=== PATIENT | female | born 1995 | race Caucasian/White ===

== ENCOUNTER 2023-02-20 21:30 | Observation (INO) | payer OTHER ==
--- NOTE | 2023-02-20 21:34 | ERPHSYRPT ---
- History of Present Illness Time Seen by Provider: 02/20/23 21:34 Historian: patient Exam Limitations: no limitations Physician History: This is a 27-year-old female patient of Dr. Vargas who complains of vomiting and diarrhea as well as headache and right-sided abdominal pain. Patient's symptoms began yesterday evening at approximately 9 PM. She woke up today and her symptoms were worse. Initially, the epigastric pain was an ache in the epigastric area. However this morning and throughout the day the pain has been more in the right side of her abdomen and it is worse than initial level. She is also had episodes of vomiting and diarrhea today and has a headache. No other individuals in the family have similar symptoms. She has no known exposure to individuals with flulike symptoms or diagnoses of viral illnesses. Patient denies chest pain. She denies cough. She has no shortness of breath. Timing/Duration: yesterday Quality: aching (Initial), sharpness (Worsening) Abdominal Pain Onset Location: RUQ, RLQ, epigastric Pain Radiation: no radiation Severity of Pain-Max: mild (To moderate) Severity of Pain-Current: moderate Modifying Factors: Improves With: other (Severe nausea) Associated Symptoms: diarrhea, loss of appetite, nausea Previous symptoms: no prior history, no recent treatment Allergies/Adverse Reactions: No Known Drug Allergies Allergy (Verified 02/20/23 21:34) Home Medications: Fluoxetine HCl 40 mg PO DAILY PRN 02/20/23 [History] Travel Risk - International Travel Have you traveled outside of the country in past 3 weeks: No - Coronavirus Screening Are you exhibiting any of the following symptoms?: Yes Symptoms: Vomiting/Diarrhea, Headaches/Body Aches/Fatigue Close contact with a COVID-19 positive Pt in past 14-21 Days: No - Vaccine Status Have you recieved a Covid-19 vaccination: No - Review of Systems Constitutional: No Symptoms Eyes: No Symptoms Ears, Nose, & Throat: No Symptoms Respiratory: No Symptoms Cardiac: No Symptoms Abdominal/Gastrointestinal: Abdominal Pain, Nausea, Diarrhea, Appetite Changes Genitourinary Symptoms: No Symptoms Musculoskeletal: No Symptoms Skin: No Symptoms Neurological: Headache Psychological: No Symptoms Endocrine: No Symptoms Hematologic/Lymphatic: No Symptoms Immunological/Allergic: No Symptoms All Other Systems: Reviewed and Negative - Past Medical History Pertinent Past Medical History: No Neurological History: No Pertinent History ENT History: No Pertinent History Cardiac History: No Pertinent History Respiratory History: No Pertinent History Endocrine Medical History: No Pertinent History Musculoskeletal History: No Pertinent History GI Medical History: No Pertinent History History: No Pertinent History Psycho-Social History: No Pertinent History, Other Female Reproductive Disorders: No Pertinent History, Other Other Medical History: abnormal pap smear - Past Surgical History Past Surgical History: No Neuro Surgical History: No Pertinent History Cardiac: No Pertinent History Respiratory: No Pertinent History Gastrointestinal: No Pertinent History Genitourinary: No Pertinent History Musculoskeletal: No Pertinent History Female Surgical History: No Pertinent History Other Surgical History: DENIES SURGERIES - Social History Smoking Status: Never smoker Exposure to second hand smoke: No Drug Use: none Patient Lives Alone: Yes - Nursing Vital Signs Nursing Vital Signs: Initial Vital Signs Temperature 98.1 F 02/20/23 21:36 Pulse Rate 83 02/20/23 21:36 Respiratory Rate 18 02/20/23 21:36 Blood Pressure 126/82 02/20/23 21:36 O2 Sat by Pulse Oximetry 98 02/20/23 21:36 Pain Scale Pain Intensity 3 - Physical Exam General Appearance: no apparent distress, alert, anxiety Eye Exam: PERRL/EOMI, eyes nml inspection Ears, Nose, Throat Exam: normal ENT inspection, moist mucous membranes Neck Exam: normal inspection, non-tender, supple, full range of motion Respiratory Exam: normal breath sounds, lungs clear, airway intact, No chest tenderness, No respiratory distress Cardiovascular Exam: regular rate/rhythm, normal heart sounds, normal peripheral pulses Gastrointestinal/Abdomen Exam: soft, normal bowel sounds, tenderness (Epigastric, right upper quadrant right lower quadrant to palpation), guarding, No rebound Pelvic Exam: not done Rectal Exam: not done Back Exam: normal inspection, normal range of motion, No CVA tenderness, No vertebral tenderness Extremity Exam: normal inspection, normal range of motion, pelvis stable Neurologic Exam: alert, oriented x 3, cooperative, medical doctor md II-XII nml as tested, normal mood/affect, nml cerebellar function, nml station & gait, sensation nml Skin Exam: normal color, warm, dry Lymphatic Exam: No adenopathy SpO2 Interpretation: normal O2 Delivery: Room Air - Course Nursing assessment & vital signs reviewed: Yes Ordered Tests: Active Orders 24 hr Category Date Time Status IV Insertion STAT Care 02/20/23 21:52 Active ABDOMEN AND PELVIS W/0 CONTRAS [CT] Stat Exams 02/20/23 21:52 Taken AMYLASE Stat Lab 02/20/23 21:50 Completed CBC W DIFF Stat Lab 02/20/23 21:50 Completed CMP Stat Lab 02/20/23 21:50 Completed HCG QUALITATIVE,SERUM Stat Lab 02/20/23 21:50 Completed LIPASE Stat Lab 02/20/23 21:50 Completed [place] Screen Stat Lab 02/20/23 21:30 Completed UA W/RFX UR CULTURE Stat Lab 02/20/23 22:46 Received Transfer Order Routine Transfer 02/20/23 Ordered Medication Summary Generic Name Dose Route Start Last Admin Trade Name Freq PRN Reason Stop Dose Admin Piperacillin Sod/Tazobactam 100 mls @ 200 mls/hr 02/20/23 22:59 02/20/23 23:04 Sod 3.375 gm/ Sodium Chloride IV 02/20/23 23:28 200 mls/hr STAT ONE Administration Discontinued Medications Generic Name Dose Route Start Last Admin Trade Name Freq PRN Reason Stop Dose Admin Hydromorphone HCl 1 mg 02/20/23 22:44 02/20/23 22:47 Hydromorphone 1 Mg/1ml Inj 1 Mg/Ml Syringe IV 02/20/23 22:45 1 mg STAT ONE Administration Hydromorphone HCl Confirm 02/20/23 22:47 Hydromorphone 1 Mg/1ml Inj 1 Mg/Ml Syringe Administered 02/20/23 22:48 Dose 1 mg .ROUTE .STK-MED ONE Sodium Chloride 1,000 mls @ 999 mls/hr 02/20/23 21:52 02/20/23 23:09 Sodium Chloride 0.9% 1000 Ml IV 02/20/23 22:52 Infused .Q1H1M STA Infusion Sodium Chloride Confirm 02/20/23 21:54 Sodium Chloride 0.9% 1000 Ml Administered 02/20/23 21:55 Dose 1,000 mls @ ud .ROUTE .STK-MED ONE Sodium Chloride Confirm 02/20/23 23:03 Sodium Chloride 100ml Mini-Bag Plus Administered 02/20/23 23:04 Dose 100 mls @ ud IV .STK-MED ONE Ondansetron HCl 4 mg 02/20/23 21:52 02/20/23 21:57 Ondansetron Hcl 4 Mg/2 Ml Vial IV 02/20/23 21:53 4 mg STAT ONE Administration Ondansetron HCl Confirm 02/20/23 21:54 Ondansetron Hcl 4 Mg/2 Ml Vial Administered 02/20/23 21:55 Dose 4 mg .ROUTE .STK-MED ONE Piperacillin Sod/Tazobactam Sod Confirm 02/20/23 23:02 Piperacillin/Tazobactam Sodium 3.375 Gm Vial Administered 02/20/23 23:03 Dose 3.375 gm IV .STK-MED ONE Lab/Rad Data: Laboratory Result Diagrams 02/20/23 21:50 02/20/23 21:50 Laboratory Results 02/20/23 02/20/23 02/20/23 Range/Units 22:46 22:46 22:20 WBC (4.0-10.5) x10^3/uL RBC (4.1-5.4) x10^6/uL Hgb (12.0-16.0) g/dL Hct (35-47) % MCV (78-100) fL MCH (26-32) pg MCHC (32-36) g/dL RDW (11.5-14.0) % Plt Count (150-450) x10^3/uL MPV (7.5-11.0) fL Gran % (36.0-66.0) % Immature Gran % (Auto) (0.00-0.4) % Nucleat RBC Rel Count (0.00-0.1) % Eos # (Auto) (0-0.5) x10^3/uL Immature Gran # (Auto) (0.00-0.03) x10^3u/L Absolute Lymphs (auto) (1.0-4.6) x10^3/uL Absolute Monos (auto) (0.0-1.3) x10^3/uL Absolute Nucleated RBC (0.00-0.01) x10^3u/L Lymphocytes % (24.0-44.0) % Monocytes % (0.0-12.0) % Eosinophils % (0.00-5.0) % Basophils % (0.0-0.4) % Absolute Granulocytes (1.4-6.9) x10^3/uL Basophils # (0-0.4) x10^3/uL Sodium (137-145) mmol/L Potassium (3.5-5.1) mmol/L Chloride (98-107) mmol/L Carbon Dioxide (22-30) mmol/L Anion Gap (5-15) MEQ/L BUN (7-17) mg/dL Creatinine (0.52-1.04) mg/dL Estimated GFR ML/MIN Glucose (74-106) mg/dL Calcium (8.4-10.2) mg/dL Total Bilirubin (0.2-1.3) mg/dL AST (14-36) U/L ALT (0-35) U/L Alkaline Phosphatase (38-126) U/L Serum Total Protein (6.3-8.2) g/dL Albumin (3.5-5.0) g/dL Amylase (30-110) U/L Lipase (23-300) U/L Serum , Qual (Negative) Urine Color Yellow (Yellow) Urine Appearance Clear (Clear) Urine pH 6.5 (4.6-8.0) Ur Specific [place] 1.025 (1.005-1.030) Urine Protein Trace A (Negative) Urine Glucose (UA) Negative (Negative) mg/dL Urine Ketones 15 A (Negative) Urine Blood Moderate A (Negative) Urine Nitrite Negative (Negative) Urine Bilirubin Negative (Negative) Urine Urobilinogen 1.0 A (0.2) mg/dL Ur Leukocyte Esterase Negative (Negative) U Hyaline Cast (Auto) NONE SEEN (0-2) /LPF Urine Microscopic RBC 0-2 (0-5) /HPF Urine Microscopic WBC 3-5 (0-5) /HPF Ur Epithelial Cells Few (None Seen) /HPF Urine Bacteria Few A (None Seen) /HPF Urine Culture Reflexed NO (NO) Monoscreen (Negative) Influenza Type A Ag NEGATIVE (NEGATIVE) Influenza Type B Ag NEGATIVE (NEGATIVE) RSV (PCR) NEGATIVE (NEGATIVE) SARS-CoV-2 (PCR) NEGATIVE (NEGATIVE) Group A Strep Antibody NOT DETECTED (NEGATIVE) 02/20/23 02/20/23 02/20/23 Range/Units 21:50 21:50 21:50 WBC 9.8 (4.0-10.5) x10^3/uL RBC 4.37 (4.1-5.4) x10^6/uL Hgb 12.3 (12.0-16.0) g/dL Hct 38.7 (35-47) % MCV 88.6 (78-100) fL MCH 28.1 (26-32) pg MCHC 31.8 L (32-36) g/dL RDW 12.0 (11.5-14.0) % Plt Count 306 (150-450) x10^3/uL MPV 10.0 (7.5-11.0) fL Gran % 56.5 (36.0-66.0) % Immature Gran % (Auto) 0.3 (0.00-0.4) % Nucleat RBC Rel Count 0.0 (0.00-0.1) % Eos # (Auto) 0.15 (0-0.5) x10^3/uL Immature Gran # (Auto) 0.03 (0.00-0.03) x10^3u/L Absolute Lymphs (auto) 3.18 (1.0-4.6) x10^3/uL Absolute Monos (auto) 0.84 (0.0-1.3) x10^3/uL Absolute Nucleated RBC 0.00 (0.00-0.01) x10^3u/L Lymphocytes % 32.4 (24.0-44.0) % Monocytes % 8.6 (0.0-12.0) % Eosinophils % 1.5 (0.00-5.0) % Basophils % 0.7 (0.0-0.4) % Absolute Granulocytes 5.55 (1.4-6.9) x10^3/uL Basophils # 0.07 (0-0.4) x10^3/uL Sodium 137 (137-145) mmol/L Potassium 3.9 (3.5-5.1) mmol/L Chloride 104 (98-107) mmol/L Carbon Dioxide 23 (22-30) mmol/L Anion Gap 13.9 (5-15) MEQ/L BUN 14 (7-17) mg/dL Creatinine 0.59 (0.52-1.04) mg/dL Estimated GFR > 60.0 ML/MIN Glucose 89 (74-106) mg/dL Calcium 8.5 (8.4-10.2) mg/dL Total Bilirubin 1.50 H (0.2-1.3) mg/dL AST 33 (14-36) U/L ALT 13 (0-35) U/L Alkaline Phosphatase 55 (38-126) U/L Serum Total Protein 7.4 (6.3-8.2) g/dL Albumin 4.2 (3.5-5.0) g/dL Amylase 61 (30-110) U/L Lipase 51 (23-300) U/L Serum , Qual NEGATIVE (Negative) Urine Color (Yellow) Urine Appearance (Clear) Urine pH (4.6-8.0) Ur Specific [place] (1.005-1.030) Urine Protein (Negative) Urine Glucose (UA) (Negative) mg/dL Urine Ketones (Negative) Urine Blood (Negative) Urine Nitrite (Negative) Urine Bilirubin (Negative) Urine Urobilinogen (0.2) mg/dL Ur Leukocyte Esterase (Negative) U Hyaline Cast (Auto) (0-2) /LPF Urine Microscopic RBC (0-5) /HPF Urine Microscopic WBC (0-5) /HPF Ur Epithelial Cells (None Seen) /HPF Urine Bacteria (None Seen) /HPF Urine Culture Reflexed (NO) Monoscreen (Negative) Influenza Type A Ag (NEGATIVE) Influenza Type B Ag (NEGATIVE) RSV (PCR) (NEGATIVE) SARS-CoV-2 (PCR) (NEGATIVE) Group A Strep Antibody (NEGATIVE) 02/20/23 Range/Units 21:30 WBC (4.0-10.5) x10^3/uL RBC (4.1-5.4) x10^6/uL Hgb (12.0-16.0) g/dL Hct (35-47) % MCV (78-100) fL MCH (26-32) pg MCHC (32-36) g/dL RDW (11.5-14.0) % Plt Count (150-450) x10^3/uL MPV (7.5-11.0) fL Gran % (36.0-66.0) % Immature Gran % (Auto) (0.00-0.4) % Nucleat RBC Rel Count (0.00-0.1) % Eos # (Auto) (0-0.5) x10^3/uL Immature Gran # (Auto) (0.00-0.03) x10^3u/L Absolute Lymphs (auto) (1.0-4.6) x10^3/uL Absolute Monos (auto) (0.0-1.3) x10^3/uL Absolute Nucleated RBC (0.00-0.01) x10^3u/L Lymphocytes % (24.0-44.0) % Monocytes % (0.0-12.0) % Eosinophils % (0.00-5.0) % Basophils % (0.0-0.4) % Absolute Granulocytes (1.4-6.9) x10^3/uL Basophils # (0-0.4) x10^3/uL Sodium (137-145) mmol/L Potassium (3.5-5.1) mmol/L Chloride (98-107) mmol/L Carbon Dioxide (22-30) mmol/L Anion Gap (5-15) MEQ/L BUN (7-17) mg/dL Creatinine (0.52-1.04) mg/dL Estimated GFR ML/MIN Glucose (74-106) mg/dL Calcium (8.4-10.2) mg/dL Total Bilirubin (0.2-1.3) mg/dL AST (14-36) U/L ALT (0-35) U/L Alkaline Phosphatase (38-126) U/L Serum Total Protein (6.3-8.2) g/dL Albumin (3.5-5.0) g/dL Amylase (30-110) U/L Lipase (23-300) U/L Serum , Qual (Negative) Urine Color (Yellow) Urine Appearance (Clear) Urine pH (4.6-8.0) Ur Specific [place] (1.005-1.030) Urine Protein (Negative) Urine Glucose (UA) (Negative) mg/dL Urine Ketones (Negative) Urine Blood (Negative) Urine Nitrite (Negative) Urine Bilirubin (Negative) Urine Urobilinogen (0.2) mg/dL Ur Leukocyte Esterase (Negative) U Hyaline Cast (Auto) (0-2) /LPF Urine Microscopic RBC (0-5) /HPF Urine Microscopic WBC (0-5) /HPF Ur Epithelial Cells (None Seen) /HPF Urine Bacteria (None Seen) /HPF Urine Culture Reflexed (NO) Monoscreen NEGATIVE (Negative) Influenza Type A Ag (NEGATIVE) Influenza Type B Ag (NEGATIVE) RSV (PCR) (NEGATIVE) SARS-CoV-2 (PCR) (NEGATIVE) Group A Strep Antibody (NEGATIVE) - Progress Progress: improved, pain not gone completely Progress Note: 02/20/23 23:10 CAT scan of the abdomen pelvis shows acute appendicitis. There is a enlarged appendix to 1 cm in diameter without abscess but with periappendiceal fat stranding present. This patient's medical issue is 1 of high complexity. The level of complexity and the work-up performed based on review of the patient's history of present illness, review of medication list, review of medication allergy list, history of present illness and findings on physical examination. The work-up performed includes placement of intravenous line, infusion of normal saline solution, Zofran antiemetic intravenously, Dilaudid pain medicine intravenously, urinalysis, test, CBC, CMP, amylase, lipase, and CAT scan of the abdomen and pelvis. I reviewed the results of this work-up. The patient has acute appendicitis. Is not perforated. I spoke with the radiologist who interpreted this film and he also confirmed what the CT scan report listed as its impression. I spoke with Dr. Callaway who is the general surgeon on-call. I reviewed to the patient history, physical findings, and the results of the CAT scan of the abdomen pelvis without contrast with him. Together, we decided to admit the patient to the hospital. We will give her IV hydration, IV antibiotics, antiemetics, keep her n.p.o. and she will undergo surgical intervention in the morning to remove the appendix. He will be notified if the patient's condition worsens or changes prior to the morning surgery. We also let the nursing staff in-house no that this surgery will be added to the morning schedule. I discussed the above with the patient. She agrees to this plan. Discussed with : Eric Counseled pt/family regarding: lab results, diagnosis, rad results Medical Desision Making - Independent Historian Additional History obtained from: Mother - Discussion of managment Care discussed with:: specialist (General surgeon and also radiologist) Reviewed:: Test results, Need for additional workup Agreed on:: Treatment plan, decision to admit - Diagnostic Testing Diagnostic test were ordered, analyzed, and reviewed by me: Yes Radiological Interpretation: Reviewed by me, Discussed w/ radiologist - Risk of complications The pt has a high risk of morbidity or mortality based on: Need for emergency major surgery, Decision regarding hospitilization or escalation of hosp level of care - Departure Departure Disposition: Home Clinical Impression: Acute appendicitis Condition: Stable Critical Care Time: No Referrals: NAINA VARGAS MD [Primary Care Provider] - Follow up/PCP as directed
[2023-02-20] MEDS ORDERED: Sodium Chloride 0.9% 1000 ML 1,000 ML IV STA (21:52)
[2023-02-20] MEDS ORDERED: Zofran 4 MG/2 ML VIAL IV ONE (21:52)
[2023-02-20] MEDS ORDERED: Sodium Chloride 0.9% 1000 ML 1,000 ML ONE (21:54)
[2023-02-20] MEDS ORDERED: Zofran 4 MG/2 ML VIAL ONE (21:54)
[2023-02-20 22:02] LABS: Absolute Neutrophil Ct (ANC) 5.55 x10^3/uL (1.4-6.9); BASOPHIL % 0.7 % (0.0-0.4); Basophil (Absolute #) 0.07 x10^3/uL (0-0.4); Eosinophil % 1.5 % (0.00-5.0); Eosinophil (Absolute #) 0.15 x10^3/uL (0-0.5); Hematocrit 38.7 % (35-47); Hemoglobin 12.3 g/dL (12.0-16.0); IMMATURE GRAN # 0.03 x10^3u/L (0.00-0.03); IMMATURE GRAN % 0.3 % (0.00-0.4); Lymphocyte (Absolute #) 3.18 x10^3/uL (1.0-4.6); Lymphocytes % 32.4 % (24.0-44.0); Mean Cell Volume 88.6 fL (78-100); Mean Corpuscular Hemoglobin 28.1 pg (26-32); Mean Corpuscular Hgb Concent. 31.8 g/dL (32-36); Monocyte (Absolute #) 0.84 x10^3/uL (0.0-1.3); Monocytes % 8.6 % (0.0-12.0); Neutrophil % 56.5 % (36.0-66.0); Platelet Count 306 x10^3/uL (150-450); Red Blood Count 4.37 x10^6/uL (4.1-5.4); White Blood Count 9.8 x10^3/uL (4.0-10.5)
[2023-02-20 22:15] LABS: ALBUMIN 4.2 g/dL (3.5-5.0); ALKALINE PHOSPHATASE 55 U/L (38-126); AMYLASE 61 U/L (30-110); ANION GAP 13.9 MEQ/L (5-15); BLOOD UREA NITROGEN 14 mg/dL (7-17); CHLORIDE 104 mmol/L (98-107); Calcium 8.5 mg/dL (8.4-10.2); Carbon Dioxide 23 mmol/L (22-30); Creatinine 1 0.59 mg/dL (0.52-1.04); EST GLOMERULAR FILTRATION RATE > 60.0 ML/MIN; Glucose 89 mg/dL (74-106); LIPASE 51 U/L (23-300); Potassium 3.9 mmol/L (3.5-5.1); SGOT/AST 33 U/L (14-36); SGPT/ALT 13 U/L (0-35); SODIUM 137 mmol/L (137-145); Total Protein 7.4 g/dL (6.3-8.2)
[2023-02-20] MEDS ORDERED: Hydromorphone 1 mg/ml Injection IV ONE (22:44)
[2023-02-20] MEDS ORDERED: Hydromorphone 1 mg/ml Injection ONE (22:47)
[2023-02-20] MEDS ORDERED: PIPERACILLIN/TAZOBACTAM 3.375 GM in Sodium Chloride 100ML MINI-BAG PLUS 100 ML IV ONE (22:59)
[2023-02-20 23:02] LABS: INFLUENZA A NEGATIVE (NEGATIVE); INFLUENZA B NEGATIVE (NEGATIVE); RESPIRATORY SYNCTIAL VIRUS NEGATIVE (NEGATIVE); SARS-CoV-2 Xpert Express NEGATIVE (NEGATIVE)
[2023-02-20] MEDS ORDERED: PIPERACILLIN/TAZOBACTAM IV ONE (23:02)
[2023-02-20] MEDS ORDERED: Sodium Chloride 100ML MINI-BAG PLUS 100 ML IV ONE (23:03)
[2023-02-20 23:05] LABS: Appearance Clear (Clear); Bilirubin Negative (Negative); Blood Moderate (Negative); Epithelial Cells Few /HPF (None Seen); Glucose, Urine Negative (Negative); Hyaline Casts NONE SEEN /LPF (0-2); Ketones 15 (Negative); Leukocyte Esterase Negative (Negative); Nitrite Negative (Negative); Ph 6.5 (4.6-8.0); Protein,Urine Dip Trace (Negative); RBC 0-2 /HPF (0-5); Specific Gravity 1.025 (1.005-1.030)
[2023-02-20 23:15] LABS: ADD URINE CULTURE? NO (NO); Bacteria Few /HPF (None Seen)
[2023-02-21] MEDS ORDERED: Sodium Chloride 0.9% 1000 ML 1,000 ML IV SCH (00:06)
[2023-02-21] MEDS ORDERED: FEVERALL 650 MG PR PRN (00:06)
[2023-02-21] MEDS: PIPERACILLIN/TAZOBACTAM 3.375 GM in Sodium Chloride 100ML MINI-BAG PLUS 100 ML IV SCH ×3 (00:09→13:33)
[2023-02-21] MEDS: Hydromorphone 1 mg/ml Injection IV PRN ×4 (00:31→13:33)
[2023-02-21 04:28] LABS: Absolute Neutrophil Ct (ANC) 3.64 x10^3/uL (1.4-6.9); BASOPHIL % 0.7 % (0.0-0.4); Basophil (Absolute #) 0.05 x10^3/uL (0-0.4); Eosinophil % 1.9 % (0.00-5.0); Eosinophil (Absolute #) 0.13 x10^3/uL (0-0.5); Hematocrit 34.9 % (35-47); Hemoglobin 11.2 g/dL (12.0-16.0); IMMATURE GRAN # 0.01 x10^3u/L (0.00-0.03); IMMATURE GRAN % 0.1 % (0.00-0.4); Lymphocyte (Absolute #) 2.39 x10^3/uL (1.0-4.6); Lymphocytes % 35.3 % (24.0-44.0); Mean Cell Volume 90.4 fL (78-100); Mean Corpuscular Hgb Concent. 32.1 g/dL (32-36); Mean Platelet Volume 9.9 fL (7.5-11.0); Monocyte (Absolute #) 0.56 x10^3/uL (0.0-1.3); Monocytes % 8.3 % (0.0-12.0); Neutrophil % 53.7 % (36.0-66.0); Platelet Count 220 x10^3/uL (150-450); Red Blood Count 3.86 x10^6/uL (4.1-5.4); Red Cell Distribution Width 12.1 % (11.5-14.0); White Blood Count 6.8 x10^3/uL (4.0-10.5)
[2023-02-21 04:43] LABS: ALBUMIN 3.2 g/dL (3.5-5.0); ALKALINE PHOSPHATASE 46 U/L (38-126); ANION GAP 10.3 MEQ/L (5-15); BLOOD UREA NITROGEN 12 mg/dL (7-17); CHLORIDE 108 mmol/L (98-107); Calcium 7.6 mg/dL (8.4-10.2); Carbon Dioxide 23 mmol/L (22-30); Creatinine 1 0.62 mg/dL (0.52-1.04); EST GLOMERULAR FILTRATION RATE > 60.0 ML/MIN; Glucose 86 mg/dL (74-106); Potassium 3.4 mmol/L (3.5-5.1); SGOT/AST 18 U/L (14-36); SGPT/ALT 11 U/L (0-35); SODIUM 138 mmol/L (137-145); Total Protein 5.9 g/dL (6.3-8.2)
[2023-02-21] MEDS ORDERED: PIPERACILLIN/TAZOBACTAM IV ONE (05:37)
[2023-02-21] MEDS ORDERED: Sodium Chloride 100ML MINI-BAG PLUS 100 ML IV ONE (05:38)
--- NOTE | 2023-02-21 08:40 | XRAY ---
Indication: Right abdomen pain. Multiple contiguous axial images obtained through the abdomen and pelvis without contrast. Comparison: None Lung bases clear. Heart is not enlarged. Noncontrasted stomach and bowel loops appear nonobstructed. Prominent appendix up to 10 mm with mild periappendiceal stranding favoring acute appendicitis. No free fluid/air. Remaining liver, gallbladder, pancreas, spleen, general glands, kidneys, ureters, bladder, uterus, and aorta are unremarkable for noncontrast exam. Osseous structures intact. Impression: CT findings favoring acute appendicitis. No complications. Comment: Preliminary interpretation made by [facility]. No critical discrepancy.
[2023-02-21] MEDS ORDERED: MEFOXIN 2 GM PREMIX** 2 GM/50 ML ML IV ONE (08:59)
[2023-02-21] MEDS ORDERED: POTASSIUM CHLORIDE 20 mEq IN WATER 100ML 20 MEQ/100 ML BAG IV ONE (09:20)
[2023-02-21] MEDS ORDERED: Sodium Chloride 0.9% W/ 20 mEq KCl/LITER 1,000 ML IV SCH (09:30)
[2023-02-21] MEDS ORDERED: Lactated Ringers 1,000 ML IV SCH (09:30)
[2023-02-21] MEDS ORDERED: MEFOXIN 2 GM PREMIX** 2 GM/50 ML ML IV SCH (10:00)
[2023-02-21] MEDS ORDERED: Phenergan 25 MG INJ*** 12.5 MG in Sodium Chloride 0.9% 100 ML IV PRN (10:01)
--- NOTE | 2023-02-21 10:04 | PCM.HP ---
History of Present Illness - Chief Complaint Chief Complaint: appy History of Present Illness: is a 27 year old female pt with no significant medical history who was admitted through ER with appendicitis. She had 1d of abd pain which started in the epigastrum, then localized to RLQ/R mid abd and worsened. She had associated V and D; no fever. Has not eaten in the past 2 d and drinking much less than usual. Since coming to the hospital, she has had a headache which is 7/10 currently. Abd pain is 3/10. She did have a hx of migraine x 1 in the past and this BRYANT is almost as bad. C/o photophobia. - Review of Systems Abdominal/Gastrointestinal: Abdominal Pain, Vomiting, Diarrhea, Appetite Changes Neurological: Headache All Other Systems: Reviewed and Negative Medications & Allergies Home Medications: Home Medication List Fluoxetine HCl 40 mg PO DAILY PRN 02/20/23 [History Confirmed 02/20/23] Allergies/Adverse Reactions: Allergies Allergy/AdvReac Type Severity Reaction Status Date / Time No Known Drug Allergies Allergy Verified 02/20/23 21:34 - Past Medical History Past Medical History: No Neurological History: No Pertinent History ENT History: No Pertinent History Cardiac History: No Pertinent History Respiratory History: No Pertinent History Endocrine Medical History: No Pertinent History Musculoskelatal History: No Pertinent History GI Medical History: No Pertinent History History: No Pertinent History Pyscho-Social History: No Pertinent History, Other Reproductive Disorders: No Pertinent History, Other Comment: abnormal pap smear - Female History Are you now?: No - Past Surgical History Past Surgical History: No Neuro Surgical History: No Pertinent History Cardiac History: No Pertinent History Respiratory Surgery: No Pertinent History GI Surgical History: No Pertinent History Genitourinary Surgical Hx: No Pertinent History Musculskeletal Surgical Hx: No Pertinent History Female Surgical History: No Pertinent History Other Surgical History: DENIES SURGERIES - Social History Smoking Status: Never smoker Exposure to second hand smoke: No Alcohol: None Drug Use: none - Physical Exam Vital Signs: Vital Signs - 24 hr Temp Pulse Resp BP Pulse Ox 02/21/23 09:14 97.3 F 72 16 112/68 96 02/21/23 07:27 97.3 F 72 16 112/68 96 02/21/23 05:00 98 F 67 16 102/64 96 02/21/23 04:05 98 F 67 16 102/64 96 03/30/23 01:52 97.8 F 68 17 112/61 02/20/23 23:00 68 94/75 98 02/20/23 22:30 79 103/73 96 02/20/23 21:36 98.1 F 83 18 126/82 98 General Appearance: no apparent distress, alert, other (just out of the shower) Neurologic Exam: oriented x 3, 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, 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 Eye Exam: eyes nml inspection Ears, Nose, Throat Exam: pharynx normal, moist mucous membranes Neck Exam: normal inspection, non-tender, No lymphadenopathy, No subcutaneous emphysema, No thyromegaly Respiratory Exam: normal breath sounds, lungs clear, No crackles/rales, No rhonchi, No wheezing Cardiovascular Exam: regular rate/rhythm, normal heart sounds, No murmur Gastrointestinal/Abdomen Exam: soft, tenderness (RLQ, R mid abd), No normal bowel sounds (hypoactive but present), No distention, No mass, No guarding, No rebound Back Exam: normal inspection, No CVA tenderness Extremity Exam: normal inspection, No pedal edema, No swelling Skin Exam: normal color, warm, dry, No rash Results - Labs Lab/Micro Results: Lab Results-Last 24 Hours 02/20/23 02/20/23 02/20/23 Range/Units 21:30 21:50 21:50 WBC 9.8 (4.0-10.5) x10^3/uL RBC 4.37 (4.1-5.4) x10^6/uL Hgb 12.3 (12.0-16.0) g/dL Hct 38.7 (35-47) % MCV 88.6 (78-100) fL MCH 28.1 (26-32) pg MCHC 31.8 L (32-36) g/dL RDW 12.0 (11.5-14.0) % Plt Count 306 (150-450) x10^3/uL MPV 10.0 (7.5-11.0) fL Gran % 56.5 (36.0-66.0) % Immature Gran % (Auto) 0.3 (0.00-0.4) % Nucleat RBC Rel Count 0.0 (0.00-0.1) % Eos # (Auto) 0.15 (0-0.5) x10^3/uL Immature Gran # (Auto) 0.03 (0.00-0.03) x10^3u/L Absolute Lymphs (auto) 3.18 (1.0-4.6) x10^3/uL Absolute Monos (auto) 0.84 (0.0-1.3) x10^3/uL Absolute Nucleated RBC 0.00 (0.00-0.01) x10^3u/L Lymphocytes % 32.4 (24.0-44.0) % Monocytes % 8.6 (0.0-12.0) % Eosinophils % 1.5 (0.00-5.0) % Basophils % 0.7 (0.0-0.4) % Absolute Granulocytes 5.55 (1.4-6.9) x10^3/uL Basophils # 0.07 (0-0.4) x10^3/uL Sodium 137 (137-145) mmol/L Potassium 3.9 (3.5-5.1) mmol/L Chloride 104 (98-107) mmol/L Carbon Dioxide 23 (22-30) mmol/L Anion Gap 13.9 (5-15) MEQ/L BUN 14 (7-17) mg/dL Creatinine 0.59 (0.52-1.04) mg/dL Estimated GFR > 60.0 ML/MIN Glucose 89 (74-106) mg/dL Calcium 8.5 (8.4-10.2) mg/dL Total Bilirubin 1.50 H (0.2-1.3) mg/dL AST 33 (14-36) U/L ALT 13 (0-35) U/L Alkaline Phosphatase 55 (38-126) U/L Serum Total Protein 7.4 (6.3-8.2) g/dL Albumin 4.2 (3.5-5.0) g/dL Amylase 61 (30-110) U/L Lipase 51 (23-300) U/L Serum , Qual (Negative) Urine Color (Yellow) Urine Appearance (Clear) Urine pH (4.6-8.0) Ur Specific [place] (1.005-1.030) Urine Protein (Negative) Urine Glucose (UA) (Negative) mg/dL Urine Ketones (Negative) Urine Blood (Negative) Urine Nitrite (Negative) Urine Bilirubin (Negative) Urine Urobilinogen (0.2) mg/dL Ur Leukocyte Esterase (Negative) U Hyaline Cast (Auto) (0-2) /LPF Urine Microscopic RBC (0-5) /HPF Urine Microscopic WBC (0-5) /HPF Ur Epithelial Cells (None Seen) /HPF Urine Bacteria (None Seen) /HPF Urine Culture Reflexed (NO) Monoscreen NEGATIVE (Negative) Influenza Type A Ag (NEGATIVE) Influenza Type B Ag (NEGATIVE) RSV (PCR) (NEGATIVE) SARS-CoV-2 (PCR) (NEGATIVE) Group A Strep Antibody (NEGATIVE) 02/20/23 02/20/23 02/20/23 Range/Units 21:50 22:20 22:46 WBC (4.0-10.5) x10^3/uL RBC (4.1-5.4) x10^6/uL Hgb (12.0-16.0) g/dL Hct (35-47) % MCV (78-100) fL MCH (26-32) pg MCHC (32-36) g/dL RDW (11.5-14.0) % Plt Count (150-450) x10^3/uL MPV (7.5-11.0) fL Gran % (36.0-66.0) % Immature Gran % (Auto) (0.00-0.4) % Nucleat RBC Rel Count (0.00-0.1) % Eos # (Auto) (0-0.5) x10^3/uL Immature Gran # (Auto) (0.00-0.03) x10^3u/L Absolute Lymphs (auto) (1.0-4.6) x10^3/uL Absolute Monos (auto) (0.0-1.3) x10^3/uL Absolute Nucleated RBC (0.00-0.01) x10^3u/L Lymphocytes % (24.0-44.0) % Monocytes % (0.0-12.0) % Eosinophils % (0.00-5.0) % Basophils % (0.0-0.4) % Absolute Granulocytes (1.4-6.9) x10^3/uL Basophils # (0-0.4) x10^3/uL Sodium (137-145) mmol/L Potassium (3.5-5.1) mmol/L Chloride (98-107) mmol/L Carbon Dioxide (22-30) mmol/L Anion Gap (5-15) MEQ/L BUN (7-17) mg/dL Creatinine (0.52-1.04) mg/dL Estimated GFR ML/MIN Glucose (74-106) mg/dL Calcium (8.4-10.2) mg/dL Total Bilirubin (0.2-1.3) mg/dL AST (14-36) U/L ALT (0-35) U/L Alkaline Phosphatase (38-126) U/L Serum Total Protein (6.3-8.2) g/dL Albumin (3.5-5.0) g/dL Amylase (30-110) U/L Lipase (23-300) U/L Serum , Qual NEGATIVE (Negative) Urine Color Yellow (Yellow) Urine Appearance Clear (Clear) Urine pH 6.5 (4.6-8.0) Ur Specific [place] 1.025 (1.005-1.030) Urine Protein Trace A (Negative) Urine Glucose (UA) Negative (Negative) mg/dL Urine Ketones 15 A (Negative) Urine Blood Moderate A (Negative) Urine Nitrite Negative (Negative) Urine Bilirubin Negative (Negative) Urine Urobilinogen 1.0 A (0.2) mg/dL Ur Leukocyte Esterase Negative (Negative) U Hyaline Cast (Auto) NONE SEEN (0-2) /LPF Urine Microscopic RBC 0-2 (0-5) /HPF Urine Microscopic WBC 3-5 (0-5) /HPF Ur Epithelial Cells Few (None Seen) /HPF Urine Bacteria Few A (None Seen) /HPF Urine Culture Reflexed NO (NO) Monoscreen (Negative) Influenza Type A Ag NEGATIVE (NEGATIVE) Influenza Type B Ag NEGATIVE (NEGATIVE) RSV (PCR) NEGATIVE (NEGATIVE) SARS-CoV-2 (PCR) NEGATIVE (NEGATIVE) Group A Strep Antibody (NEGATIVE) 02/20/23 02/21/23 02/21/23 Range/Units 22:46 04:11 04:11 WBC 6.8 (4.0-10.5) x10^3/uL RBC 3.86 L (4.1-5.4) x10^6/uL Hgb 11.2 L (12.0-16.0) g/dL Hct 34.9 L (35-47) % MCV 90.4 (78-100) fL MCH 29.0 (26-32) pg MCHC 32.1 (32-36) g/dL RDW 12.1 (11.5-14.0) % Plt Count 220 (150-450) x10^3/uL MPV 9.9 (7.5-11.0) fL Gran % 53.7 (36.0-66.0) % Immature Gran % (Auto) 0.1 (0.00-0.4) % Nucleat RBC Rel Count 0.0 (0.00-0.1) % Eos # (Auto) 0.13 (0-0.5) x10^3/uL Immature Gran # (Auto) 0.01 (0.00-0.03) x10^3u/L Absolute Lymphs (auto) 2.39 (1.0-4.6) x10^3/uL Absolute Monos (auto) 0.56 (0.0-1.3) x10^3/uL Absolute Nucleated RBC 0.00 (0.00-0.01) x10^3u/L Lymphocytes % 35.3 (24.0-44.0) % Monocytes % 8.3 (0.0-12.0) % Eosinophils % 1.9 (0.00-5.0) % Basophils % 0.7 (0.0-0.4) % Absolute Granulocytes 3.64 (1.4-6.9) x10^3/uL Basophils # 0.05 (0-0.4) x10^3/uL Sodium 138 (137-145) mmol/L Potassium 3.4 L (3.5-5.1) mmol/L Chloride 108 H (98-107) mmol/L Carbon Dioxide 23 (22-30) mmol/L Anion Gap 10.3 (5-15) MEQ/L BUN 12 (7-17) mg/dL Creatinine 0.62 (0.52-1.04) mg/dL Estimated GFR > 60.0 ML/MIN Glucose 86 (74-106) mg/dL Calcium 7.6 L (8.4-10.2) mg/dL Total Bilirubin 1.40 H (0.2-1.3) mg/dL AST 18 (14-36) U/L ALT 11 (0-35) U/L Alkaline Phosphatase 46 (38-126) U/L Serum Total Protein 5.9 L (6.3-8.2) g/dL Albumin 3.2 L (3.5-5.0) g/dL Amylase (30-110) U/L Lipase (23-300) U/L Serum , Qual (Negative) Urine Color (Yellow) Urine Appearance (Clear) Urine pH (4.6-8.0) Ur Specific [place] (1.005-1.030) Urine Protein (Negative) Urine Glucose (UA) (Negative) mg/dL Urine Ketones (Negative) Urine Blood (Negative) Urine Nitrite (Negative) Urine Bilirubin (Negative) Urine Urobilinogen (0.2) mg/dL Ur Leukocyte Esterase (Negative) U Hyaline Cast (Auto) (0-2) /LPF Urine Microscopic RBC (0-5) /HPF Urine Microscopic WBC (0-5) /HPF Ur Epithelial Cells (None Seen) /HPF Urine Bacteria (None Seen) /HPF Urine Culture Reflexed (NO) Monoscreen (Negative) Influenza Type A Ag (NEGATIVE) Influenza Type B Ag (NEGATIVE) RSV (PCR) (NEGATIVE) SARS-CoV-2 (PCR) (NEGATIVE) Group A Strep Antibody NOT DETECTED (NEGATIVE) - Radiology Impressions Radiology Exams & Impressions: Radiology Procedures Category Date Time Status ABDOMEN AND PELVIS W/0 CONTRAS [CT] Stat Exams 02/20/23 21:52 Completed Assessment/Plan (1) Acute appendicitis Current Visit: Yes Status: Acute Qualifiers: Acute appendicitis type: unspecified acute appendicitis type Qualified Code(s): K35.80 - Unspecified acute appendicitis Assessment & Plan: She is having surgery with Dr. Shon Wu within the hour, thank you. Code(s): K35.80 - UNSPECIFIED ACUTE APPENDICITIS (2) Headache Current Visit: Yes Status: Acute Qualifiers: Headache type: other headache syndrome Qualified Code(s): G44.89 - Other headache syndrome Assessment & Plan: Likely migraine, with photophobia, + FHx migraine, and personal history of a migraine in the past. Likely related to dehydration, along with recent weather changes, stress, sleep changes, and current illness. CN exam is nl. With factors common for migraine and nl exam, I don't feel that imaging is necessary at this time. Code(s): R51.9 - HEADACHE, UNSPECIFIED
[2023-02-21] MEDS ORDERED: DIPRIVAN 200 MG/20 ML IV ONE ×2 (10:06→10:16)
[2023-02-21] MEDS ORDERED: Decadron 4 MG INJ ONE ×2 (10:07→10:16)
[2023-02-21] MEDS ORDERED: Xylocaine-Mpf 2% 5 Ml Vial ONE ×2 (10:07→10:16)
[2023-02-21] MEDS ORDERED: Zofran 4 MG/2 ML VIAL ONE ×2 (10:07→10:16)
[2023-02-21] MEDS ORDERED: SUBLIMAZE 100 MCG/2 ML ONE ×3 (10:08→11:52)
[2023-02-21] MEDS ORDERED: Zemuron 100 MG/10 ML ONE ×2 (10:08→10:16)
[2023-02-21] MEDS ORDERED: BRIDION 200MG/2ML IV ONE ×2 (10:16→10:48)
[2023-02-21] MEDS ORDERED: TORAdol 30 mg Injection ONE ×2 (10:16→11:24)
[2023-02-21] MEDS ORDERED: Versed 2 MG/2 ML Injection ONE (10:19)
[2023-02-21] MEDS ORDERED: Magnesium Sulfate 1 GM/2 ML VIAL ONE (10:31)
[2023-02-21] MEDS ORDERED: Ketamine HCl 50 MG/ML ONE (10:34)
[2023-02-21] MEDS ORDERED: Ephedrine Sulfate 50 MG/ML ONE (11:05)
[2023-02-21] MEDS ORDERED: MORPHINE SULFATE 2 MG INJ ONE ×2 (11:44→12:21)
[2023-02-21] MEDS ORDERED: Hydromorphone 1 mg/ml Injection ONE (11:58)
[2023-02-21] MEDS ORDERED: Zofran 4 MG/2 ML VIAL IV PRN (13:49)
[2023-02-21] MEDS ORDERED: Dextrose 5% -0.45 NaCl 1000 ML 1,000 ML IV SCH (14:00)
[2023-02-21 14:09] VITALS: PULSE 69
--- NOTE | 2023-02-21 14:17 | CONS ---
CONSULT DATE: 02/21/2023 HISTORY OF PRESENT ILLNESS: 27 year-old came in yesterday with symptoms compatible with appendicitis right lower quadrant pain. WBC 10,000. CT scan lightly positive with appendix up to 10 mm. There is still discomfort there localized to right lower quadrant after 24 hours. PAST MEDICAL HISTORY: HOME MEDICATIONS: She had a control bracelet. ALLERGIES: NONE. SURGERIES: No surgeries. FAMILY HISTORY: Negative. SOCIAL HISTORY: Negative. PHYSICAL EXAMINATION: Vital signs normal. CHEST: Clear. COR: Regular. ABDOMEN: Tender at [facility]. WBC 10,000. CT positive. IMPRESSION: 1. ACUTE APPENDICITIS. PLAN: Laparoscopic appendectomy.
[2023-02-21 14:36] VITALS: BP 101/61; O2SAT 92
--- NOTE | 2023-02-21 14:54 | OP ---
SURGERY DATE: 02/21/2023 SURGERY TIME: 1019 PREOPERATIVE DIAGNOSIS: 1. ACUTE APPENDICITIS. POSTOPERATIVE DIAGNOSIS: 1. ACUTE APPENDICITIS. PROCEDURE: 1. Laparoscopic appendectomy. SURGEON: Kike Wu M.D. 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 ANESTHESIA: General. COMPLICATIONS: None. CONDITION: Stable. OPERATIVE PROCEDURE: Patient taken to surgery. General anesthetic. Routine prep and drape. Veress needle inserted. Opened to a pressure of 1. Insufflated to a pressure of 14. The 5 port in the right upper quadrant, 12 port at the umbilicus, 5 port in the right lower quadrant all under direct visualization. Good visualization present. A little bit of clear serous fluid over the round ligament on the right side of the uterus which was suctioned. The appendix was about half way up the right gutter. It was only 2 " long. It was slightly, acutely inflamed and it was slightly dilated almost evenly throughout. The mesentery was very short. It was taken with a hook cautery very deliberately. The appendix was totally free at the base of the cecum. It was taken along with just a little wisp of cecum. Staple line was excellent and staple line was not bleeding. The appendix was able to be pulled out through the 12 port. It was basically sucked back up the 12 port and then the 12 port was extracted and the appendix extracted. The field was totally dry. A hole closure device with 2 sutures of 0 Vicryl at the umbilicus. CO2 was then suctioned. Skin closed with 4-0 Vicryl and steri-strips. The patient tolerated the procedure satisfactory.
[2023-02-21] MEDS: MORPHINE SULFATE 2 MG INJ IV PRN ×3 (15:09→18:16)
== END 2023-02-21 18:55 | disposition home or self-care (01) ==
LOC: ED 21:30 → MED SURG 23:55
PROVIDERS: ADMIT Surgery; ATTEND Surgery
DX: K35.80 Unspecified acute appendicitis (principal); D72.829 Elevated white blood cell count, unspecified; R51.9 Headache, unspecified; Z20.828 Contact with and (suspected) exposure to other viral communicable diseases; Z79.899 Other long term (current) drug therapy
CPT/HCPCS: 0241U; 36000; 36415; 44970; 74176; 80053; 81001; 82150; 83690; 84132; 84703; 85025; 86308; 87651; 96360; 96365; 96374; 96375; 99285; 93268; G0378; J0694; J1100; J1170; J1885; J2250; J2270; J2405; J2704; J3010; J3475; J3480; A9270-GY

== ENCOUNTER 2023-02-24 09:31 | Emergency (ER) | payer OTHER ==
--- NOTE | 2023-02-24 09:40 | ERPHSYRPT ---
- History of Present Illness Time Seen by Provider: 02/24/23 09:40 Historian: patient, family Exam Limitations: no limitations Physician History: This is a 27-year-old white female patient of Dr. Terrell Aiken who underwent a laparoscopic appendectomy 2 days ago. Patient states she was doing well. There is no increase in her abdominal pain. However, patient states that she ate pizza last evening (this is 2 days after her appendectomy) and woke up this morning with nausea and 3 episodes of vomiting. She also had an episode of diarrhea. She had complaints of diarrhea preoperatively. She denies chest pain. She denies shortness of breath. Her COVID test was negative on the 02/21/2023. Her level abdominal pain is 4 out of 10. She states that she cannot hold liquids down. Timing/Duration: today Activities at Onset: none Abdominal Pain Onset Location: generalized abdomen (4 out of 10) Pain Radiation: no radiation Severity of Pain-Max: mild Severity of Pain-Current: mild Modifying Factors: Improves With: vomiting Associated Symptoms: loss of appetite, nausea, vomiting, No chest pain, No shortness of breath Previous symptoms: recently seen, recent hospitalization, recently treated Allergies/Adverse Reactions: No Known Drug Allergies Allergy (Verified 02/24/23 09:48) Home Medications: Fluoxetine HCl 40 mg PO DAILY PRN 02/20/23 [History] Hx Tetanus, Diphtheria Vaccination/Date Given: Yes Hx Influenza Vaccination/Date Given: No Hx Pneumococcal Vaccination/Date Given: No Travel Risk - International Travel Have you traveled outside of the country in past 3 weeks: No - Coronavirus Screening Are you exhibiting any of the following symptoms?: No Close contact with a COVID-19 positive Pt in past 14-21 Days: No - Vaccine Status Have you recieved a Covid-19 vaccination: No - Review of Systems Constitutional: No Symptoms Eyes: No Symptoms Ears, Nose, & Throat: No Symptoms Respiratory: No Symptoms Cardiac: No Symptoms Abdominal/Gastrointestinal: Abdominal Pain, Nausea, Vomiting, Diarrhea, No Constipation Genitourinary Symptoms: No Symptoms Musculoskeletal: No Symptoms Skin: No Symptoms Neurological: No Symptoms Psychological: No Symptoms Endocrine: No Symptoms Hematologic/Lymphatic: No Symptoms Immunological/Allergic: No Symptoms All Other Systems: Reviewed and Negative - Past Medical History Pertinent Past Medical History: No Neurological History: No Pertinent History ENT History: No Pertinent History Cardiac History: No Pertinent History Respiratory History: No Pertinent History Endocrine Medical History: No Pertinent History Musculoskeletal History: No Pertinent History GI Medical History: No Pertinent History History: No Pertinent History Psycho-Social History: No Pertinent History, Other Female Reproductive Disorders: No Pertinent History, Other Other Medical History: abnormal pap smear - Past Surgical History Past Surgical History: No Neuro Surgical History: No Pertinent History Cardiac: No Pertinent History Respiratory: No Pertinent History Gastrointestinal: No Pertinent History Genitourinary: No Pertinent History Musculoskeletal: No Pertinent History Female Surgical History: No Pertinent History Other Surgical History: DENIES SURGERIES - Social History Smoking Status: Never smoker Exposure to second hand smoke: No Drug Use: none Patient Lives Alone: Yes - Nursing Vital Signs Nursing Vital Signs: Initial Vital Signs Temperature 98.4 F 02/24/23 09:50 Pulse Rate 85 02/24/23 09:50 Respiratory Rate 18 02/24/23 09:50 Blood Pressure 118/69 02/24/23 09:50 O2 Sat by Pulse Oximetry 98 02/24/23 09:50 Pain Scale Pain Intensity 4 - Physical Exam General Appearance: no apparent distress, alert, anxiety Eye Exam: PERRL/EOMI, eyes nml inspection Ears, Nose, Throat Exam: normal ENT inspection, moist mucous membranes Neck Exam: normal inspection, non-tender, supple, full range of motion Respiratory Exam: normal breath sounds, lungs clear, airway intact, No chest tenderness, No respiratory distress Cardiovascular Exam: regular rate/rhythm, normal heart sounds, normal peripheral pulses Gastrointestinal/Abdomen Exam: soft, normal bowel sounds, tenderness (Mild diffuse.), other (Laparoscopic incision sites are clean dry and intact with Steri-Strips in place) Pelvic Exam: not done Rectal Exam: not done Back Exam: normal inspection, normal range of motion, No CVA tenderness, No vertebral tenderness Extremity Exam: normal inspection, normal range of motion, pelvis stable Neurologic Exam: alert, oriented x 3, cooperative, bridge tender II-XII nml as tested, normal mood/affect, nml cerebellar function, nml station & gait, sensation nml Skin Exam: normal color, warm, dry Lymphatic Exam: No adenopathy SpO2 Interpretation: normal O2 Delivery: Room Air - Course Nursing assessment & vital signs reviewed: Yes Ordered Tests: Active Orders 24 hr Category Date Time Status IV Insertion STAT Care 02/24/23 10:04 Active AMYLASE Stat Lab 02/24/23 10:07 Completed CBC W DIFF Stat Lab 02/24/23 10:07 Completed CMP Stat Lab 02/24/23 10:07 Completed HCG QUALITATIVE,SERUM Stat Lab 02/24/23 10:07 Completed LIPASE Stat Lab 02/24/23 10:07 Completed UA W/RFX UR CULTURE Stat Lab 02/24/23 11:00 Completed Medication Summary Discontinued Medications Generic Name Dose Route Start Last Admin Trade Name Freq PRN Reason Stop Dose Admin Hydromorphone HCl 0.5 mg 02/24/23 10:04 02/24/23 10:38 Hydromorphone 1 Mg/1ml Inj 1 Mg/Ml Syringe IV 02/24/23 10:05 Not Given STAT ONE Hydromorphone HCl Confirm 02/24/23 10:20 Hydromorphone 1 Mg/1ml Inj 1 Mg/Ml Syringe Administered 02/24/23 10:21 Dose 1 mg .ROUTE .STK-MED ONE Sodium Chloride 1,000 mls @ 999 mls/hr 02/24/23 10:04 02/24/23 10:22 Sodium Chloride 0.9% 1000 Ml IV 02/24/23 11:04 999 mls/hr .Q1H1M STA Administration Sodium Chloride Confirm 02/24/23 10:21 Sodium Chloride 0.9% 1000 Ml Administered 02/24/23 10:22 Dose 1,000 mls @ ud .ROUTE .STK-MED ONE Ondansetron HCl 4 mg 02/24/23 10:04 02/24/23 10:22 Ondansetron Hcl 4 Mg/2 Ml Vial IV 02/24/23 10:05 4 mg STAT ONE Administration Ondansetron HCl Confirm 02/24/23 10:20 Ondansetron Hcl 4 Mg/2 Ml Vial Administered 02/24/23 10:21 Dose 4 mg .ROUTE .STK-MED ONE Pantoprazole Sodium 40 mg 02/24/23 10:04 02/24/23 10:22 Pantoprazole 40 Mg Vial IV 02/24/23 10:05 40 mg STAT ONE Administration Pantoprazole Sodium Confirm 02/24/23 10:20 Pantoprazole 40 Mg Vial Administered 02/24/23 10:21 Dose 40 mg IV .STK-MED ONE Lab/Rad Data: Laboratory Result Diagrams 02/24/23 10:07 02/24/23 10:07 Laboratory Results 02/24/23 02/24/23 02/24/23 Range/Units 11:00 10:07 10:07 WBC (4.0-10.5) x10^3/uL RBC (4.1-5.4) x10^6/uL Hgb (12.0-16.0) g/dL Hct (35-47) % MCV (78-100) fL MCH (26-32) pg MCHC (32-36) g/dL RDW (11.5-14.0) % Plt Count (150-450) x10^3/uL MPV (7.5-11.0) fL Gran % (36.0-66.0) % Immature Gran % (Auto) (0.00-0.4) % Nucleat RBC Rel Count (0.00-0.1) % Eos # (Auto) (0-0.5) x10^3/uL Immature Gran # (Auto) (0.00-0.03) x10^3u/L Absolute Lymphs (auto) (1.0-4.6) x10^3/uL Absolute Monos (auto) (0.0-1.3) x10^3/uL Absolute Nucleated RBC (0.00-0.01) x10^3u/L Lymphocytes % (24.0-44.0) % Monocytes % (0.0-12.0) % Eosinophils % (0.00-5.0) % Basophils % (0.0-0.4) % Absolute Granulocytes (1.4-6.9) x10^3/uL Basophils # (0-0.4) x10^3/uL Sodium 139 (137-145) mmol/L Potassium 3.7 (3.5-5.1) mmol/L Chloride 107 (98-107) mmol/L Carbon Dioxide 25 (22-30) mmol/L Anion Gap 11.1 (5-15) MEQ/L BUN 13 (7-17) mg/dL Creatinine 0.55 (0.52-1.04) mg/dL Estimated GFR > 60.0 ML/MIN Glucose 93 (74-106) mg/dL Calcium 8.6 (8.4-10.2) mg/dL Total Bilirubin 0.80 (0.2-1.3) mg/dL AST 33 (14-36) U/L ALT 25 (0-35) U/L Alkaline Phosphatase 49 (38-126) U/L Serum Total Protein 7.2 (6.3-8.2) g/dL Albumin 4.0 (3.5-5.0) g/dL Amylase 64 (30-110) U/L Lipase 56 (23-300) U/L Serum , Qual NEGATIVE (Negative) Urine Color Yellow (Yellow) Urine Appearance Clear (Clear) Urine pH 8.5 A (4.6-8.0) Ur Specific Garrett 1.015 (1.005-1.030) Urine Protein Negative (Negative) Urine Glucose (UA) Negative (Negative) mg/dL Urine Ketones Negative (Negative) Urine Blood Small A (Negative) Urine Nitrite Negative (Negative) Urine Bilirubin Negative (Negative) Urine Urobilinogen 0.2 (0.2) mg/dL Ur Leukocyte Esterase Negative (Negative) U Hyaline Cast (Auto) NONE SEEN (0-2) /LPF Urine Microscopic RBC 6-10 A (0-5) /HPF Urine Microscopic WBC 0-2 (0-5) /HPF Ur Epithelial Cells None Seen (None Seen) /HPF Urine Bacteria None Seen (None Seen) /HPF Urine Culture Reflexed NO (NO) 02/24/23 Range/Units 10:07 WBC 8.7 (4.0-10.5) x10^3/uL RBC 4.39 (4.1-5.4) x10^6/uL Hgb 12.6 (12.0-16.0) g/dL Hct 39.1 (35-47) % MCV 89.1 (78-100) fL MCH 28.7 (26-32) pg MCHC 32.2 (32-36) g/dL RDW 11.9 (11.5-14.0) % Plt Count 255 (150-450) x10^3/uL MPV 10.1 (7.5-11.0) fL Gran % 85.8 H (36.0-66.0) % Immature Gran % (Auto) 0.2 (0.00-0.4) % Nucleat RBC Rel Count 0.0 (0.00-0.1) % Eos # (Auto) 0.10 (0-0.5) x10^3/uL Immature Gran # (Auto) 0.02 (0.00-0.03) x10^3u/L Absolute Lymphs (auto) 0.75 L (1.0-4.6) x10^3/uL Absolute Monos (auto) 0.36 (0.0-1.3) x10^3/uL Absolute Nucleated RBC 0.00 (0.00-0.01) x10^3u/L Lymphocytes % 8.6 L (24.0-44.0) % Monocytes % 4.1 (0.0-12.0) % Eosinophils % 1.1 (0.00-5.0) % Basophils % 0.2 (0.0-0.4) % Absolute Granulocytes 7.48 H (1.4-6.9) x10^3/uL Basophils # 0.02 (0-0.4) x10^3/uL Sodium (137-145) mmol/L Potassium (3.5-5.1) mmol/L Chloride (98-107) mmol/L Carbon Dioxide (22-30) mmol/L Anion Gap (5-15) MEQ/L BUN (7-17) mg/dL Creatinine (0.52-1.04) mg/dL Estimated GFR ML/MIN Glucose (74-106) mg/dL Calcium (8.4-10.2) mg/dL Total Bilirubin (0.2-1.3) mg/dL AST (14-36) U/L ALT (0-35) U/L Alkaline Phosphatase (38-126) U/L Serum Total Protein (6.3-8.2) g/dL Albumin (3.5-5.0) g/dL Amylase (30-110) U/L Lipase (23-300) U/L Serum , Qual (Negative) Urine Color (Yellow) Urine Appearance (Clear) Urine pH (4.6-8.0) Ur Specific Garrett (1.005-1.030) Urine Protein (Negative) Urine Glucose (UA) (Negative) mg/dL Urine Ketones (Negative) Urine Blood (Negative) Urine Nitrite (Negative) Urine Bilirubin (Negative) Urine Urobilinogen (0.2) mg/dL Ur Leukocyte Esterase (Negative) U Hyaline Cast (Auto) (0-2) /LPF Urine Microscopic RBC (0-5) /HPF Urine Microscopic WBC (0-5) /HPF Ur Epithelial Cells (None Seen) /HPF Urine Bacteria (None Seen) /HPF Urine Culture Reflexed (NO) - Progress Progress: improved, re-examined Progress Note: 02/24/23 11:17 This patient's medical issue is 1 of moderate complexity. The level of complexity and the work-up performed is based on the review of the patient's past medical history, review of the patient's medication list, review of the patient's drug allergies, history present illness and the findings on physical examination. The work-up includes placement of intravenous line and infusion of normal saline solution as well as infusion of Zofran and Protonix intravenously. We also performed a CBC, CMP, test, urinalysis. I reviewed the results of the studies. The patient likely had some gastritis and postoperative vomiting secondary to advancing her diet fairly rapidly to pizza within 48 hours after she had a laparoscopic appendectomy. Discharge instructions is to avoid fatty greasy spicy foods for 1 week and then slowly advance her diet. She is to keep her appointment with her general surgeon. We will discharge her to home with prescriptions for Pepcid and Zofran being sent to her pharmacy. Counseled pt/family regarding: lab results, diagnosis, need for follow-up, rad results Medical Desision Making - Discussion of managment Reviewed:: Test results Agreed on:: Treatment plan, need for follow-up - Diagnostic Testing Diagnostic test were ordered, analyzed, and reviewed by me: Yes Radiological Interpretation: Reviewed by me - Risk of complications The pt has a mod risk of morbidity or mortality based on: Need for prescription drug management - Departure Departure Disposition: Home Clinical Impression: Postoperative vomiting, Gastritis Condition: Stable Critical Care Time: No Referrals: HECTOR [facility]ASE [Primary Care Provider] - Follow up/PCP as directed Additional Instructions: Drop your diet back to clear liquid diet. Do not consume fatty greasy spicy foods for 1 week. Slowly advance your diet to a regular diet over 1 week's time. Take your medication as prescribed. Keep your appointment with your surgeon. Continue your other postoperative instructions Prescriptions: Ondansetron ODT 4 MG [Zofran Odt 4 mg] 4 mg PO Q6H PRN PRN #10 tablet PRN Reason: Vomiting Famotidine 20 mg [Pepcid 20 MG] 20 mg PO DAILY #10 tablet
[2023-02-24] MEDS ORDERED: PROTONIX 40 MG IV IV ONE ×2 (10:04→10:20)
[2023-02-24] MEDS ORDERED: Zofran 4 MG/2 ML VIAL IV ONE (10:04)
[2023-02-24] MEDS ORDERED: Sodium Chloride 0.9% 1000 ML 1,000 ML IV STA (10:04)
[2023-02-24 10:15] LABS: Absolute Neutrophil Ct (ANC) 7.48 x10^3/uL (1.4-6.9); BASOPHIL % 0.2 % (0.0-0.4); Basophil (Absolute #) 0.02 x10^3/uL (0-0.4); Eosinophil % 1.1 % (0.00-5.0); Hematocrit 39.1 % (35-47); Hemoglobin 12.6 g/dL (12.0-16.0); IMMATURE GRAN # 0.02 x10^3u/L (0.00-0.03); IMMATURE GRAN % 0.2 % (0.00-0.4); Lymphocyte (Absolute #) 0.75 x10^3/uL (1.0-4.6); Lymphocytes % 8.6 % (24.0-44.0); Mean Cell Volume 89.1 fL (78-100); Mean Corpuscular Hemoglobin 28.7 pg (26-32); Mean Corpuscular Hgb Concent. 32.2 g/dL (32-36); Mean Platelet Volume 10.1 fL (7.5-11.0); Monocyte (Absolute #) 0.36 x10^3/uL (0.0-1.3); Monocytes % 4.1 % (0.0-12.0); Neutrophil % 85.8 % (36.0-66.0); Platelet Count 255 x10^3/uL (150-450); Red Blood Count 4.39 x10^6/uL (4.1-5.4); Red Cell Distribution Width 11.9 % (11.5-14.0); White Blood Count 8.7 x10^3/uL (4.0-10.5)
[2023-02-24] MEDS ORDERED: Hydromorphone 1 mg/ml Injection ONE (10:20)
[2023-02-24] MEDS ORDERED: Zofran 4 MG/2 ML VIAL ONE (10:20)
[2023-02-24] MEDS ORDERED: Sodium Chloride 0.9% 1000 ML 1,000 ML ONE (10:21)
[2023-02-24 10:23] LABS: ALKALINE PHOSPHATASE 49 U/L (38-126); AMYLASE 64 U/L (30-110); ANION GAP 11.1 MEQ/L (5-15); BLOOD UREA NITROGEN 13 mg/dL (7-17); CHLORIDE 107 mmol/L (98-107); Calcium 8.6 mg/dL (8.4-10.2); Carbon Dioxide 25 mmol/L (22-30); Creatinine 1 0.55 mg/dL (0.52-1.04); EST GLOMERULAR FILTRATION RATE > 60.0 ML/MIN; Glucose 93 mg/dL (74-106); LIPASE 56 U/L (23-300); Potassium 3.7 mmol/L (3.5-5.1); SGOT/AST 33 U/L (14-36); SGPT/ALT 25 U/L (0-35); SODIUM 139 mmol/L (137-145); Total Protein 7.2 g/dL (6.3-8.2)
[2023-02-24] MEDS: Hydromorphone 1 mg/ml Injection IV ONE ×2 (10:23→10:38)
[2023-02-24 11:09] LABS: Appearance Clear (Clear); Bacteria None Seen /HPF (None Seen); Bilirubin Negative (Negative); Blood Small (Negative); Epithelial Cells None Seen /HPF (None Seen); Glucose, Urine Negative (Negative); Hyaline Casts NONE SEEN /LPF (0-2); Ketones Negative (Negative); Leukocyte Esterase Negative (Negative); Nitrite Negative (Negative); Ph 8.5 (4.6-8.0); Protein,Urine Dip Negative (Negative); Specific Gravity 1.015 (1.005-1.030); Urobilinogen 0.2 mg/dL (0.2); WBC 0-2 /HPF (0-5)
[2023-02-24 11:13] LABS: ADD URINE CULTURE? NO (NO)
[2023-02-24] MEDS ORDERED: TORAdol 30 mg Injection ONE (11:19)
[2023-02-24] MEDS ORDERED: TORAdol 30 mg Injection IV ONE (11:21)
[2023-02-24 11:29] VITALS: BP 111/77; PULSE 76; O2SAT 97
== END 2023-02-24 11:45 | disposition home or self-care (01) ==
LOC: ED 09:31
DX: K91.0 Vomiting following gastrointestinal surgery (principal); K29.70 Gastritis, unspecified, without bleeding; Z79.899 Other long term (current) drug therapy; Z28.310 Unvaccinated for COVID-19
CPT/HCPCS: 36415; 80053; 81001; 82150; 83690; 84703; 85025; 96360; 96374; 96375; 99284; J1170; J1885; J2405

== ENCOUNTER 2024-11-13 11:11 | Observation (INO) | payer OTHER ==
[2024-11-13 11:52] VITALS: RESP 16; TEMP 98.1
[2024-11-13] MEDS ORDERED: Zofran 4 MG/2 ML VIAL IV STA (12:14)
[2024-11-13 12:21] LABS: Appearance Clear (Clear); Bacteria Rare /HPF (None Seen); Bilirubin Negative (Negative); Blood Negative (Negative); Epithelial Cells Moderate /HPF (None Seen); Glucose, Urine Negative (Negative); Hyaline Casts NONE SEEN /LPF (0-2); Ketones 15 (Negative); Leukocyte Esterase Trace (Negative); Nitrite Negative (Negative); Ph 7.5 (4.6-8.0); Protein,Urine Dip Trace (Negative); RBC 0-2 /HPF (0-5); Urobilinogen 0.2 mg/dL (0.2)
[2024-11-13 12:38] LABS: Amphetamine,Urine NEGATIVE (NEGATIVE); Barbiturate,Urine NEGATIVE (NEGATIVE); Benzodiazepine,Urine NEGATIVE (NEGATIVE); Cocaine,Urine NEGATIVE (NEGATIVE); Methadone,Urine NEGATIVE (NEGATIVE); Opiate,Urine NEGATIVE (NEGATIVE); PCP,Urine NEGATIVE (NEGATIVE); THC,Urine POSITIVE (NEGATIVE)
[2024-11-13] MEDS: Lactated Ringers 1,000 ML IV ONE (12:39)
[2024-11-13 12:54] LABS: INFLUENZA A NEGATIVE (NEGATIVE); INFLUENZA B NEGATIVE (NEGATIVE); RESPIRATORY SYNCTIAL VIRUS NEGATIVE (NEGATIVE); SARS-CoV-2 Xpert Express NEGATIVE (NEGATIVE)
[2024-11-13] MEDS ORDERED: TYLENOL EXTRA STRENGTH 500 MG PO STA (13:08)
[2024-11-13] MEDS: TYLENOL 325 MG PO ONE (13:27)
[2024-11-13 14:54] VITALS: BP 96/51; PULSE 104; O2SAT 95
== END 2024-11-13 15:40 | disposition home or self-care (01) ==
LOC: OB 11:11
PROVIDERS: ADMIT Obstetrics & Gynecology; ATTEND Obstetrics & Gynecology
DX: Z34.82 Encounter for supervision of other normal pregnancy, second trimester (principal); Z3A.26 26 weeks gestation of pregnancy
CPT/HCPCS: 0241U; 80307; 81001; 87086; 87651; G0378; G0379; A9270-GY

== ENCOUNTER 2024-12-11 11:12 | Emergency (ER) | payer OTHER ==
[2024-12-11 11:32] VITALS: TEMP 98.8
--- NOTE | 2024-12-11 11:47 | ERPHSYRPT ---
- History of Present Illness Time Seen by Provider: 12/11/24 11:25 Historian: patient, family Exam Limitations: no limitations Patient Subjective Stated Complaint: C/O cough since yesterday with vomiting and abdominal cramping that started around 0100 today. Triage Nursing Assessment: Patient brought back to ER in a W/C. She is alert and oriented. Dry, Non-productive cough noted during assessment; patient reports productive at home with "bubbly" sputum. NO SOB. Skin tone normal. Heart Tones obtained at 160. Physician History: This is a 29-year-old white female patient who arrives by private vehicle accompanied by her spouse who presents to the emergency department with headache, body aches, coughing that began yesterday. This morning she started having some vomiting and abdominal cramping without vaginal bleeding or vaginal discharge. Patient's supervisor vacuum metalizing is Dr. Parkinson and her primary care provider is Dr. Castro. She has no known drug allergies. The patient states she is concerned about dehydration. heart tones were taken here in the emergency department and it is 160 bpm. Timing/Duration: yesterday Quality: cramping Abdominal Pain Onset Location: suprapubic Pain Radiation: no radiation Severity of Pain-Max: mild Severity of Pain-Current: mild Modifying Factors: Improves With: vomiting Associated Symptoms: loss of appetite, nausea, vomiting, weakness, No chest pain, No diarrhea, No shortness of breath Previous symptoms: no prior history, no recent treatment Allergies/Adverse Reactions: No Known Drug Allergies Allergy (Verified 12/11/24 11:32) Home Medications: Pnv 119/Iron Fum/Folic Acid [ 19 Tablet] 1 tab PO DAILY 12/11/24 [History] Hx Tetanus, Diphtheria Vaccination/Date Given: Yes Hx Influenza Vaccination/Date Given: No Hx Pneumococcal Vaccination/Date Given: No Immunizations Up to Date: Yes Travel Risk - International Travel Have you traveled outside of the country in past 3 weeks: No - Emerging Infectious Disease Are you exhibiting symptoms associated with any current EIDs: Yes Symptoms: Abdominal Pain, Cough: New Onset, Headaches/Body Aches/, Vomitting - Review of Systems Constitutional: Weakness, No Fever, No Chills Eyes: No Symptoms Ears, Nose, & Throat: No Symptoms Respiratory: No Symptoms Cardiac: No Symptoms Abdominal/Gastrointestinal: Abdominal Pain (Lower suprapubic cramping), Nausea, Vomiting, Appetite Changes, No Diarrhea Genitourinary Symptoms: No Symptoms Musculoskeletal: Arthralgias, Myalgias Skin: No Symptoms Neurological: No Symptoms Psychological: No Symptoms Endocrine: No Symptoms Hematologic/Lymphatic: No Symptoms Immunological/Allergic: No Symptoms All Other Systems: Reviewed and Negative - Past Medical History Pertinent Past Medical History: No Neurological History: No Pertinent History ENT History: No Pertinent History Cardiac History: No Pertinent History Respiratory History: No Pertinent History Endocrine Medical History: No Pertinent History Musculoskeletal History: No Pertinent History GI Medical History: No Pertinent History History: No Pertinent History Psycho-Social History: No Pertinent History Female Reproductive Disorders: No Pertinent History Other Medical History: abnormal pap smear - Past Surgical History Past Surgical History: Yes Neuro Surgical History: No Pertinent History Cardiac: No Pertinent History Respiratory: No Pertinent History Gastrointestinal: Appendectomy Genitourinary: No Pertinent History Musculoskeletal: No Pertinent History Female Surgical History: No Pertinent History Other Surgical History: DENIES SURGERIES - Female History Hx Now: Yes Gestational Age: 30 weeks - Social History Smoking Status: Never smoker Exposure to second hand smoke: No Drug Use: none Patient Lives Alone: Yes - Social Determinants of Health Will the patient participate in the screening: Yes Do you worry about a steady place to live?: No Do you have any problems with any of the following?: No known problems In the past 12 months,have you had to go without utilities?: No Transportation Issues: No Has anyone in your support network made you feel unsafe?: No Have you or anyone in your house had to go without enough: No - Nursing Vital Signs Nursing Vital Signs: Initial Vital Signs Temperature 98.8 F 12/11/24 11:21 Pulse Rate 120 H 12/11/24 11:21 Respiratory Rate 20 12/11/24 11:21 Blood Pressure 93/62 12/11/24 11:21 O2 Sat by Pulse Oximetry 99 12/11/24 11:21 Pain Scale Pain Intensity 5 - Physical Exam General Appearance: mild distress, alert, anxiety Eye Exam: PERRL/EOMI, eyes nml inspection Ears, Nose, Throat Exam: normal ENT inspection, TMs normal, pharynx normal, moist mucous membranes Neck Exam: normal inspection, non-tender, supple, full range of motion Respiratory Exam: normal breath sounds, lungs clear, airway intact, No chest tenderness, No respiratory distress Cardiovascular Exam: tachycardia Gastrointestinal/Abdomen Exam: soft, normal bowel sounds, No tenderness, No guarding Pelvic Exam: not done Rectal Exam: not done Back Exam: normal inspection, normal range of motion, No CVA tenderness, No vertebral tenderness Extremity Exam: normal inspection, normal range of motion, pelvis stable Neurologic Exam: alert, oriented x 3, cooperative, black jack dealer II-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 nml as tested, nml cerebellar function, nml station & gait, sensation nml Skin Exam: normal color, warm, dry Lymphatic Exam: No adenopathy SpO2 Interpretation: normal SpO2: 99 O2 Delivery: Room Air - Course Nursing assessment & vital signs reviewed: Yes Ordered Tests: Active Orders 24 hr Category Date Time Status IV Insertion STAT Care 12/11/24 11:34 Active AMYLASE Stat Lab 12/11/24 11:58 Completed CBC W DIFF Stat Lab 12/11/24 11:58 Completed CMP Stat Lab 12/11/24 11:58 Completed CULTURE,URINE Stat Lab 12/11/24 11:49 Received LIPASE Stat Lab 12/11/24 11:58 Completed Lactic Acid Stat Lab 12/11/24 12:03 Completed MONO SCREEN Stat Lab 12/11/24 11:58 Completed UA W/RFX UR CULTURE Stat Lab 12/11/24 11:49 Completed Medication Summary Generic Name Dose Route Start Last Admin Trade Name Freq PRN Reason Stop Dose Admin Sodium Chloride 1,000 mls @ 999 mls/hr 12/11/24 13:04 12/11/24 13:10 Sodium Chloride 0.9% 1000 Ml IV 12/11/24 14:04 999 mls/hr .Q1H1M STA Administration Discontinued Medications Generic Name Dose Route Start Last Admin Trade Name Freq PRN Reason Stop Dose Admin Acetaminophen 650 mg 12/11/24 13:19 12/11/24 13:23 Acetaminophen 325 Mg Tablet PO 12/11/24 13:20 650 mg STAT ONE Administration Acetaminophen Confirm 12/11/24 13:23 Acetaminophen 325 Mg Tablet Administered 12/11/24 13:24 Dose 650 mg .ROUTE .STK-MED ONE Sodium Chloride 1,000 mls @ 999 mls/hr 12/11/24 11:34 12/11/24 13:10 Sodium Chloride 0.9% 1000 Ml IV 12/11/24 12:34 Infused .Q1H1M STA Infusion Sodium Chloride Confirm 12/11/24 12:06 Sodium Chloride 0.9% 1000 Ml Administered 12/11/24 12:07 Dose 1,000 mls @ ud .ROUTE .STK-MED ONE Ceftriaxone Sodium 1 gm in 100 mls @ 200 mls/hr 12/11/24 13:04 12/11/24 13:38 Rocephin 1 Gm / 100 Ml Nacl IV 12/11/24 13:33 Infused STAT ONE Infusion Sodium Chloride Confirm 12/11/24 13:06 Sodium Chloride 0.9% 1000 Ml Administered 12/11/24 13:07 Dose 1,000 mls @ ud .ROUTE .STK-MED ONE Ceftriaxone Sodium Confirm 12/11/24 13:06 Rocephin 1 Gm / 100 Ml Nacl Administered 12/11/24 13:07 Dose 1 gm in 100 mls @ ud IV .STK-MED ONE Ondansetron HCl 4 mg 12/11/24 11:34 12/11/24 12:11 Ondansetron Hcl 4 Mg/2 Ml Vial IV 12/11/24 11:35 4 mg STAT ONE Administration Ondansetron HCl Confirm 12/11/24 12:05 Ondansetron Hcl 4 Mg/2 Ml Vial Administered 12/11/24 12:06 Dose 4 mg .ROUTE .STK-MED ONE Lab/Rad Data: Laboratory Result Diagrams 12/11/24 11:58 12/11/24 11:58 Laboratory Results 12/11/24 12/11/24 12/11/24 Range/Units 12:03 12:01 12:01 WBC (3.98-10.04) x10^3/uL RBC (3.93-5.22) x10^6/uL Hgb (11.2-15.7) g/dL Hct (34.1-44.9) % MCV (79.4-94.8) fL MCH (25.6-32.2) pg MCHC (32.2-35.5) g/dL RDW (11.7-14.4) % Plt Count (182-369) x10^3/uL MPV (9.4-12.3) fL Gran % (34.0-71.1) % Immature Gran % (Auto) (0.001-0.429) % Nucleat RBC Rel Count (0.00-0.2) % Eos # (Auto) (0.04-0.36) x10^3/uL Immature Gran # (Auto) (0.001-0.031) x10^3u/L Absolute Lymphs (auto) (1.18-3.74) x10^3/uL Absolute Monos (auto) (0.24-0.86) x10^3/uL Absolute Nucleated RBC (0.00-0.012) x10^3u/L Lymphocytes % (19.3-51.7) % Monocytes % (4.7-12.5) % Eosinophils % (0.7-5.8) % Basophils % (0.1-1.2) % Absolute Granulocytes (1.56-6.13) x10^3/uL Basophils # (0.01-0.08) x10^3/uL Sodium (135-145) mmol/L Potassium (3.5-5.1) mmol/L Chloride (98-107) mmol/L Carbon Dioxide (22-30) mmol/L Anion Gap (5-15) MEQ/L BUN (7-17) mg/dL Creatinine (0.52-1.04) mg/dL Estimated GFR ML/MIN Glucose (74-106) mg/dL Lactic Acid 0.8 (0.4-2.0) Calcium (8.4-10.2) mg/dL Total Bilirubin (0.2-1.3) mg/dL AST (14-36) U/L ALT (0-35) U/L Alkaline Phosphatase (38-126) U/L Serum Total Protein (6.3-8.2) g/dL Albumin (3.5-5.0) g/dL Amylase (30-110) U/L Lipase (23-300) U/L Urine Color (Yellow) Urine Appearance (Clear) Urine pH (4.6-8.0) Ur Specific Emerson (1.005-1.030) Urine Protein (Negative) Urine Glucose (UA) (Negative) mg/dL Urine Ketones (Negative) Urine Blood (Negative) Urine Nitrite (Negative) Urine Bilirubin (Negative) Urine Urobilinogen (0.2) mg/dL Ur Leukocyte Esterase (Negative) U Hyaline Cast (Auto) (0-2) /LPF Urine Microscopic RBC (0-5) /HPF Urine Microscopic WBC (0-5) /HPF Ur Epithelial Cells (None Seen) /HPF Urine Bacteria (None Seen) /HPF Urine Culture Reflexed (NO) Monoscreen (NEGATIVE) Influenza Type A Ag POSITIVE A (NEGATIVE) Influenza Type B Ag NEGATIVE (NEGATIVE) RSV (PCR) NEGATIVE (NEGATIVE) SARS-CoV-2 (PCR) NEGATIVE (NEGATIVE) Group A Strep Antibody NOT DETECTED (NEGATIVE) Slides for Path Review 12/11/24 12/11/24 12/11/24 Range/Units 11:58 11:58 11:58 WBC 10.8 H (3.98-10.04) x10^3/uL RBC 3.79 L (3.93-5.22) x10^6/uL Hgb 11.9 (11.2-15.7) g/dL Hct 34.2 (34.1-44.9) % MCV 90.2 (79.4-94.8) fL MCH 31.4 (25.6-32.2) pg MCHC 34.8 (32.2-35.5) g/dL RDW 13.0 (11.7-14.4) % Plt Count 208 (182-369) x10^3/uL MPV 9.4 (9.4-12.3) fL Gran % 87.4 H (34.0-71.1) % Immature Gran % (Auto) 1.1 H (0.001-0.429) % Nucleat RBC Rel Count 0.0 (0.00-0.2) % Eos # (Auto) 0.03 L (0.04-0.36) x10^3/uL Immature Gran # (Auto) 0.12 H (0.001-0.031) x10^3u/L Absolute Lymphs (auto) 0.56 L (1.18-3.74) x10^3/uL Absolute Monos (auto) 0.59 (0.24-0.86) x10^3/uL Absolute Nucleated RBC 0.00 (0.00-0.012) x10^3u/L Lymphocytes % 5.2 L (19.3-51.7) % Monocytes % 5.5 (4.7-12.5) % Eosinophils % 0.3 L (0.7-5.8) % Basophils % 0.5 (0.1-1.2) % Absolute Granulocytes 9.40 H (1.56-6.13) x10^3/uL Basophils # 0.05 (0.01-0.08) x10^3/uL Sodium 133 L (135-145) mmol/L Potassium 3.9 (3.5-5.1) mmol/L Chloride 105 (98-107) mmol/L Carbon Dioxide 18 L (22-30) mmol/L Anion Gap 13.8 (5-15) MEQ/L BUN 7 (7-17) mg/dL Creatinine 0.50 L (0.52-1.04) mg/dL Estimated GFR 129.3 ML/MIN Glucose 81 (74-106) mg/dL Lactic Acid (0.4-2.0) Calcium 8.8 (8.4-10.2) mg/dL Total Bilirubin 1.20 (0.2-1.3) mg/dL AST 39 H (14-36) U/L ALT 18 (0-35) U/L Alkaline Phosphatase 191 H (38-126) U/L Serum Total Protein 7.0 (6.3-8.2) g/dL Albumin 3.7 (3.5-5.0) g/dL Amylase 53 (30-110) U/L Lipase 27 (23-300) U/L Urine Color (Yellow) Urine Appearance (Clear) Urine pH (4.6-8.0) Ur Specific Emerson (1.005-1.030) Urine Protein (Negative) Urine Glucose (UA) (Negative) mg/dL Urine Ketones (Negative) Urine Blood (Negative) Urine Nitrite (Negative) Urine Bilirubin (Negative) Urine Urobilinogen (0.2) mg/dL Ur Leukocyte Esterase (Negative) U Hyaline Cast (Auto) (0-2) /LPF Urine Microscopic RBC (0-5) /HPF Urine Microscopic WBC (0-5) /HPF Ur Epithelial Cells (None Seen) /HPF Urine Bacteria (None Seen) /HPF Urine Culture Reflexed (NO) Monoscreen NEGATIVE (NEGATIVE) Influenza Type A Ag (NEGATIVE) Influenza Type B Ag (NEGATIVE) RSV (PCR) (NEGATIVE) SARS-CoV-2 (PCR) (NEGATIVE) Group A Strep Antibody (NEGATIVE) Slides for Path Review YES 12/11/24 Range/Units 11:49 WBC (3.98-10.04) x10^3/uL RBC (3.93-5.22) x10^6/uL Hgb (11.2-15.7) g/dL Hct (34.1-44.9) % MCV (79.4-94.8) fL MCH (25.6-32.2) pg MCHC (32.2-35.5) g/dL RDW (11.7-14.4) % Plt Count (182-369) x10^3/uL MPV (9.4-12.3) fL Gran % (34.0-71.1) % Immature Gran % (Auto) (0.001-0.429) % Nucleat RBC Rel Count (0.00-0.2) % Eos # (Auto) (0.04-0.36) x10^3/uL Immature Gran # (Auto) (0.001-0.031) x10^3u/L Absolute Lymphs (auto) (1.18-3.74) x10^3/uL Absolute Monos (auto) (0.24-0.86) x10^3/uL Absolute Nucleated RBC (0.00-0.012) x10^3u/L Lymphocytes % (19.3-51.7) % Monocytes % (4.7-12.5) % Eosinophils % (0.7-5.8) % Basophils % (0.1-1.2) % Absolute Granulocytes (1.56-6.13) x10^3/uL Basophils # (0.01-0.08) x10^3/uL Sodium (135-145) mmol/L Potassium (3.5-5.1) mmol/L Chloride (98-107) mmol/L Carbon Dioxide (22-30) mmol/L Anion Gap (5-15) MEQ/L BUN (7-17) mg/dL Creatinine (0.52-1.04) mg/dL Estimated GFR ML/MIN Glucose (74-106) mg/dL Lactic Acid (0.4-2.0) Calcium (8.4-10.2) mg/dL Total Bilirubin (0.2-1.3) mg/dL AST (14-36) U/L ALT (0-35) U/L Alkaline Phosphatase (38-126) U/L Serum Total Protein (6.3-8.2) g/dL Albumin (3.5-5.0) g/dL Amylase (30-110) U/L Lipase (23-300) U/L Urine Color Dark Yellow A (Yellow) Urine Appearance Cloudy A (Clear) Urine pH 7.0 (4.6-8.0) Ur Specific Emerson 1.020 (1.005-1.030) Urine Protein 30 (Negative) Urine Glucose (UA) Negative (Negative) mg/dL Urine Ketones >=160 A (Negative) Urine Blood Negative (Negative) Urine Nitrite Negative (Negative) Urine Bilirubin Small A (Negative) Urine Urobilinogen 0.2 (0.2) mg/dL Ur Leukocyte Esterase Small A (Negative) U Hyaline Cast (Auto) NONE SEEN (0-2) /LPF Urine Microscopic RBC 0-2 (0-5) /HPF Urine Microscopic WBC 11-20 A (0-5) /HPF Ur Epithelial Cells Many A (None Seen) /HPF Urine Bacteria Few A (None Seen) /HPF Urine Culture Reflexed YES (NO) Monoscreen (NEGATIVE) Influenza Type A Ag (NEGATIVE) Influenza Type B Ag (NEGATIVE) RSV (PCR) (NEGATIVE) SARS-CoV-2 (PCR) (NEGATIVE) Group A Strep Antibody (NEGATIVE) Slides for Path Review - Progress Progress: improved, re-examined Progress Note: 12/11/24 12:23 My medical decision making and the assignment of moderate complexity to this patient's medical issue today is based on review of the patient's past medical history, review of the patient's medication list, reviewed patient drug allergy list, history present illness and physical findings on examination. The workup in this patient includes placement of an intravenous line, infusion of normal saline solution, infusion of Zofran, CBC, CMP, amylase, lipase, urinalysis, viral swabs, monotest, strep test Differential diagnosis includes but is not limited to viral illness, dehydration, urinary tract infection, electrolyte abnormalities 12/11/24 13:51 I interpreted the patient's laboratory data results. Based on the laboratory data is results, the patient is significantly dehydrated, has a urinary tract infection and test positive for influenza A. We will rehydrate this patient, provide her with intravenous Rocephin. I spoke with Dr. Parkinson, the patient's supervisor vacuum metalizing, and together we agree that we will hold on Tamiflu. It is not curative and this patient is already 2 days into no symptoms. Some of her symptoms may be related more to the dehydration and urinary tract infection. Counseled pt/family regarding: lab results, diagnosis, need for follow-up Medical Desision Making - Independent Historian Additional History obtained from: Spouse - Diagnostic Testing Diagnostic test were ordered, analyzed, and reviewed by me: Yes - Risk of complications The pt has a mod risk of morbidity or mortality based on: Need for prescription drug management - Departure Departure Disposition: Home Clinical Impression: Dehydration, UTI (urinary tract infection), Influenza A H1N1 infection, Vomiting during Condition: Stable Critical Care Time: No Referrals: TONI CASTRO [Primary Care Provider] - Follow up/PCP as directed Additional Instructions: Drink clear liquid diet. Once you are tolerating clear liquid diet well, you may advance your diet. Avoid fatty greasy spicy foods. Take your antibiotics a nd other medications as prescribed. Call your supervisor vacuum metalizing today, 12/11/2024, to make arrangements to be seen in the next 3 to 5 days. Prescriptions: Ondansetron ODT 4 MG [Zofran Odt 4 mg] 4 mg PO Q6H PRN PRN #10 tablet PRN Reason: Vomiting Cephalexin Mh 500 mg [Keflex 500 mg] 500 mg PO TID #21 cap
[2024-12-11 12:02] LABS: BASOPHIL % 0.5 % (0.1-1.2); Basophil (Absolute #) 0.05 x10^3/uL (0.01-0.08); Eosinophil % 0.3 % (0.7-5.8); Eosinophil (Absolute #) 0.03 x10^3/uL (0.04-0.36); Hematocrit 34.2 % (34.1-44.9); Hemoglobin 11.9 g/dL (11.2-15.7); IMMATURE GRAN # 0.12 x10^3u/L (0.001-0.031); IMMATURE GRAN % 1.1 % (0.001-0.429); Lymphocyte (Absolute #) 0.56 x10^3/uL (1.18-3.74); Lymphocytes % 5.2 % (19.3-51.7); Mean Cell Volume 90.2 fL (79.4-94.8); Mean Corpuscular Hemoglobin 31.4 pg (25.6-32.2); Mean Corpuscular Hgb Concent. 34.8 g/dL (32.2-35.5); Mean Platelet Volume 9.4 fL (9.4-12.3); Monocyte (Absolute #) 0.59 x10^3/uL (0.24-0.86); Monocytes % 5.5 % (4.7-12.5); Neutrophil % 87.4 % (34.0-71.1); Platelet Count 208 x10^3/uL (182-369); Red Blood Count 3.79 x10^6/uL (3.93-5.22); White Blood Count 10.8 x10^3/uL (3.98-10.04)
[2024-12-11] MEDS ORDERED: Zofran 4 MG/2 ML VIAL ONE (12:05)
[2024-12-11] MEDS ORDERED: Sodium Chloride 0.9% 1000 ML 1,000 ML ONE ×2 (12:06→13:06)
[2024-12-11] MEDS: Sodium Chloride 0.9% 1000 ML 1,000 ML IV STA ×2 (12:09→13:10)
[2024-12-11] MEDS: Zofran 4 MG/2 ML VIAL IV ONE (12:11)
[2024-12-11 12:13] LABS: Appearance Cloudy (Clear); Bacteria Few /HPF (None Seen); Bilirubin Small (Negative); Blood Negative (Negative); Epithelial Cells Many /HPF (None Seen); Glucose, Urine Negative (Negative); Hyaline Casts NONE SEEN /LPF (0-2); Ketones >=160 (Negative); Leukocyte Esterase Small (Negative); Nitrite Negative (Negative); Protein,Urine Dip 30 (Negative); RBC 0-2 /HPF (0-5); Urobilinogen 0.2 mg/dL (0.2)
[2024-12-11 12:14] LABS: ALBUMIN 3.7 g/dL (3.5-5.0); ANION GAP 13.8 MEQ/L (5-15); BILIRUBIN,TOTAL 1.2 mg/dL (0.2-1.3); Calcium 8.8 mg/dL (8.4-10.2); Creatinine 1 0.5 mg/dL (0.52-1.04); EST GLOMERULAR FILTRATION RATE 129.3 ML/MIN; Potassium 3.9 mmol/L (3.5-5.1)
[2024-12-11 12:45] LABS: INFLUENZA B NEGATIVE (NEGATIVE); RESPIRATORY SYNCTIAL VIRUS NEGATIVE (NEGATIVE); SARS-CoV-2 Xpert Express NEGATIVE (NEGATIVE)
[2024-12-11] MEDS ORDERED: ROCEPHIN 1 GM / 100 ML NaCl 1 GM/100 ML IVPB IV ONE (13:06)
[2024-12-11] MEDS: ROCEPHIN 1 GM / 100 ML NaCl 1 GM/100 ML IVPB IV ONE (13:07)
[2024-12-11 13:14] LABS: INFLUENZA A POSITIVE (NEGATIVE)
[2024-12-11 13:23] LABS: Slide Review 1 YES
[2024-12-11] MEDS ORDERED: TYLENOL 325 MG ONE (13:23)
[2024-12-11] MEDS: TYLENOL 325 MG PO ONE (13:23)
[2024-12-11 15:01] VITALS: BP 82/42; PULSE 131; RESP 21; O2SAT 97
== END 2024-12-11 15:03 | disposition home or self-care (01) ==
LOC: ED 11:12
DX: O98.513 Other viral diseases complicating pregnancy, third trimester (principal); J10.1 Influenza due to other identified influenza virus with other respiratory manifestations; O23.43 Unspecified infection of urinary tract in pregnancy, third trimester; N39.0 Urinary tract infection, site not specified; O21.9 Vomiting of pregnancy, unspecified; E86.0 Dehydration; R07.9 Chest pain, unspecified; R51.9 Headache, unspecified; R05.1 Acute cough; Z3A.30 30 weeks gestation of pregnancy
CPT/HCPCS: 0241U; 36415; 80053; 81001; 82150; 83605; 83690; 85025; 86308; 87086; 87651; 93041; 96360; 96361; 96365; 96374; 99285; 99284; J0696; J2405; A9270-GY

== ENCOUNTER 2024-12-11 15:01 | Observation (INO) | payer OTHER ==
[2024-12-11] MEDS ORDERED: Lactated Ringers 1,000 ML IV ONE (15:40)
[2024-12-11 16:02] VITALS: BP 91/53; RESP 22; TEMP 99.9
[2024-12-11 16:11] VITALS: PULSE 116
== END 2024-12-11 16:30 | disposition home or self-care (01) ==
LOC: UNDOADMOB 15:01 → MED SURG 15:01 → UNDODISOB 16:30
PROVIDERS: ADMIT Obstetrics & Gynecology; ATTEND Obstetrics & Gynecology
DX: J10.1 Influenza due to other identified influenza virus with other respiratory manifestations (principal); Z3A.30 30 weeks gestation of pregnancy

== ENCOUNTER 2025-01-20 13:41 | Observation (INO) | payer OTHER ==
[2025-01-20 14:15] LABS: Appearance Cloudy (Clear); Bilirubin Negative (Negative); Blood Negative (Negative); Glucose, Urine Negative (Negative); Ketones Negative (Negative); Leukocyte Esterase Trace (Negative); Nitrite Negative (Negative); Protein,Urine Dip Negative (Negative); Specific Gravity <=1.005 (1.005-1.030); Urobilinogen 0.2 mg/dL (0.2)
[2025-01-20 14:32] LABS: Amphetamine,Urine NEGATIVE (NEGATIVE); Barbiturate,Urine NEGATIVE (NEGATIVE); Benzodiazepine,Urine NEGATIVE (NEGATIVE); Cocaine,Urine NEGATIVE (NEGATIVE); Methadone,Urine NEGATIVE (NEGATIVE); Opiate,Urine NEGATIVE (NEGATIVE); PCP,Urine NEGATIVE (NEGATIVE); THC,Urine POSITIVE (NEGATIVE)
[2025-01-20 14:37] LABS: Bacteria Few /HPF (None Seen); Epithelial Cells Moderate /HPF (None Seen); RBC 0-2 /HPF (0-5)
[2025-01-20 15:06] VITALS: O2SAT 97
[2025-01-20 15:26] VITALS: BP 107/61; PULSE 90; RESP 18
== END 2025-01-20 15:30 | disposition home or self-care (01) ==
LOC: OB 13:41
PROVIDERS: ADMIT Obstetrics & Gynecology; ATTEND Obstetrics & Gynecology
DX: Z34.83 Encounter for supervision of other normal pregnancy, third trimester (principal); Z3A.37 37 weeks gestation of pregnancy
CPT/HCPCS: 80307; 81001

== ENCOUNTER 2025-01-21 19:48 | Observation (INO) | payer OTHER ==
[2025-01-21 20:18] VITALS: RESP 18
[2025-01-21] MEDS ORDERED: Lactated Ringers 1,000 ML IV ONE ×2 (20:27→22:22)
[2025-01-21] MEDS ORDERED: Zofran 4 MG/2 ML VIAL ONE (20:27)
[2025-01-21] MEDS: Lactated Ringers 1,000 ML IV ONE (20:29)
[2025-01-21] MEDS: Zofran 4 MG/2 ML VIAL IV ONE (20:30)
[2025-01-21 20:37] LABS: BASOPHIL % 0.3 % (0.1-1.2); Basophil (Absolute #) 0.05 x10^3/uL (0.01-0.08); Eosinophil % 0.5 % (0.7-5.8); Eosinophil (Absolute #) 0.07 x10^3/uL (0.04-0.36); Hematocrit 41.2 % (34.1-44.9); Hemoglobin 14.2 g/dL (11.2-15.7); IMMATURE GRAN % 0.7 % (0.001-0.429); Lymphocyte (Absolute #) 1.24 x10^3/uL (1.18-3.74); Lymphocytes % 8.5 % (19.3-51.7); Mean Cell Volume 90.4 fL (79.4-94.8); Mean Corpuscular Hemoglobin 31.1 pg (25.6-32.2); Mean Corpuscular Hgb Concent. 34.5 g/dL (32.2-35.5); Mean Platelet Volume 10.1 fL (9.4-12.3); Monocyte (Absolute #) 0.79 x10^3/uL (0.24-0.86); Monocytes % 5.4 % (4.7-12.5); Neutrophil % 84.6 % (34.0-71.1); Platelet Count 279 x10^3/uL (182-369); Red Blood Count 4.56 x10^6/uL (3.93-5.22); Red Cell Distribution Width 14.2 % (11.7-14.4); White Blood Count 14.6 x10^3/uL (3.98-10.04)
[2025-01-21 20:47] LABS: ALBUMIN 4.3 g/dL (3.5-5.0); ANION GAP 17.6 MEQ/L (5-15); BILIRUBIN,TOTAL 2.2 mg/dL (0.2-1.3); Calcium 9.5 mg/dL (8.4-10.2); Creatinine 1 0.59 mg/dL (0.52-1.04); EST GLOMERULAR FILTRATION RATE 124.3 ML/MIN; Potassium 3.7 mmol/L (3.5-5.1); Total Protein 7.8 g/dL (6.3-8.2)
--- NOTE | 2025-01-21 20:50 | ERPHSYRPT ---
- History of Present Illness Time Seen by Provider: 01/21/25 19:49 Source: patient, family Exam Limitations: no limitations Patient Subjective Stated Complaint: pt states that she has been vomiting since 0900 this morning. pt states that she is 37 weeks . pt states that she was in the office saturday for a stress test. pt states that she was 1 cm. Triage Nursing Assessment: pt ambulated into the er; pt axo x4; c/o vomiting; c/o N/V/D; pt denies pain; pt is 37 wks ; skin PDW; no respiratory distress present; mucus membranes pink and moist; heart tone 147; vitals wnl Physician History: 29 years old 2 para 1 at 37 weeks gestation presented in the ER with intractable nausea vomiting and diarrhea since morning. Patient reports she was not feeling well yesterday, was having some nausea, was prescribed Zofran which she has not picked up yet. Patient reports multiple episodes of nonprojectile, nonbilious vomiting without hematemesis and also multiple episodes of loose watery stool. Not able to hold much down. Feels weak fatigued tired and dehydrated. Reports minimal lower abdominal/pelvic cramping. No vaginal bleeding discharge. No fever or chills reported. Denies any chest pain palpitations or shortness of breath. No known sick contact. Patient called her primary [employer] and is sent in here. Allergies/Adverse Reactions: No Known Drug Allergies Allergy (Verified 01/21/25 19:58) Home Medications: Pnv 119/Iron Fum/Folic Acid [ 19 Tablet] 1 tab PO DAILY 12/11/24 [History] Ferrous Sulfate 325 mg [Feosol 325 mg] 325 mg PO DAILY 01/21/25 [History] Hx Tetanus, Diphtheria Vaccination/Date Given: Yes Hx Influenza Vaccination/Date Given: No Hx Pneumococcal Vaccination/Date Given: No Travel Risk - International Travel Have you traveled outside of the country in past 3 weeks: No - Emerging Infectious Disease Are you exhibiting symptoms associated with any current EIDs: Yes Symptoms: Diarrhea, Vomitting - Review of Systems Constitutional: Fatigue, Weakness Eyes: No Symptoms Ears, Nose, & Throat: No Symptoms Respiratory: No Symptoms Cardiac: No Symptoms Abdominal/Gastrointestinal: Abdominal Pain, Nausea, Vomiting, Diarrhea Genitourinary Symptoms: Musculoskeletal: No Symptoms Skin: No Symptoms Neurological: No Symptoms Psychological: No Symptoms Endocrine: No Symptoms - Past Medical History Pertinent Past Medical History: No Neurological History: No Pertinent History ENT History: No Pertinent History Cardiac History: No Pertinent History Respiratory History: No Pertinent History Endocrine Medical History: No Pertinent History Musculoskeletal History: No Pertinent History GI Medical History: No Pertinent History History: No Pertinent History Psycho-Social History: No Pertinent History Female Reproductive Disorders: No Pertinent History Other Medical History: abnormal pap smear - Past Surgical History Past Surgical History: Yes Neuro Surgical History: No Pertinent History Cardiac: No Pertinent History Respiratory: No Pertinent History Gastrointestinal: Appendectomy Genitourinary: No Pertinent History Musculoskeletal: No Pertinent History Female Surgical History: No Pertinent History Other Surgical History: DENIES SURGERIES - Female History Hx Now: Yes Gestational Age: 36 - Social History Smoking Status: Never smoker Exposure to second hand smoke: No Drug Use: none - Social Determinants of Health Will the patient participate in the screening: Yes Do you worry about a steady place to live?: No Do you have any problems with any of the following?: No known problems In the past 12 months,have you had to go without utilities?: No Transportation Issues: No Has anyone in your support network made you feel unsafe?: No Have you or anyone in your house had to go w/o enough food: No - Nursing Vital Signs Nursing Vital Signs: Initial Vital Signs Blood Pressure 114/68 01/21/25 19:55 O2 Sat by Pulse Oximetry 98 01/21/25 19:55 Pain Scale Pain Intensity 0 - Physical Exam General Appearance: no apparent distress, alert Eye Exam: PERRL/EOMI Ears, Nose, Throat Exam: normal ENT inspection Neck Exam: normal inspection, non-tender, supple, full range of motion Respiratory Exam: normal breath sounds, lungs clear Cardiovascular Exam: regular rate/rhythm, normal heart sounds Gastrointestinal/Abdomen Exam: soft, normal bowel sounds, other (Gravid uterus), No tenderness Back Exam: normal inspection, normal range of motion Extremity Exam: normal inspection, normal range of motion Neurologic Exam: alert, oriented x 3, cooperative Skin Exam: normal color SpO2 Interpretation: normal SpO2: 97 O2 Delivery: Room Air Ordered Tests: Active Orders 24 hr Category Date Time Status IV Insertion STAT Care 01/21/25 20:00 Active CBC W DIFF Stat Lab 01/21/25 20:25 Completed CMP Stat Lab 01/21/25 20:25 Completed LIPASE Stat Lab 01/21/25 20:25 Completed UA W/RFX UR CULTURE Stat Lab 01/21/25 20:26 Ordered Medication Summary Generic Name Dose Route Start Last Admin Trade Name Aisha PRN Reason Stop Dose Admin Lactated Ringer's 1,000 mls @ 999 mls/hr 01/21/25 20:26 01/21/25 20:29 Lactated Ringers IV 01/21/25 21:26 999 mls/hr .Q1H1M ONE Administration Discontinued Medications Generic Name Dose Route Start Last Admin Trade Name Aisha PRN Reason Stop Dose Admin Lactated Ringer's Confirm 01/21/25 20:27 Lactated Ringers Administered 01/21/25 20:28 Dose 1,000 mls @ ud IV .STK-MED ONE Ondansetron HCl 4 mg 01/21/25 20:26 01/21/25 20:30 Ondansetron Hcl 4 Mg/2 Ml Vial IV 01/21/25 20:27 4 mg STAT ONE Administration Ondansetron HCl Confirm 01/21/25 20:27 Ondansetron Hcl 4 Mg/2 Ml Vial Administered 01/21/25 20:28 Dose 4 mg .ROUTE .STK-MED ONE Lab/Rad Data: Laboratory Result Diagrams 01/21/25 20:25 01/21/25 20:25 Laboratory Results 01/21/25 01/21/25 Range/Units 20:25 20:25 WBC 14.6 H (3.98-10.04) x10^3/uL RBC 4.56 (3.93-5.22) x10^6/uL Hgb 14.2 (11.2-15.7) g/dL Hct 41.2 (34.1-44.9) % MCV 90.4 (79.4-94.8) fL MCH 31.1 (25.6-32.2) pg MCHC 34.5 (32.2-35.5) g/dL RDW 14.2 (11.7-14.4) % Plt Count 279 (182-369) x10^3/uL MPV 10.1 (9.4-12.3) fL Gran % 84.6 H (34.0-71.1) % Immature Gran % (Auto) 0.7 H (0.001-0.429) % Nucleat RBC Rel Count 0.0 (0.00-0.2) % Eos # (Auto) 0.07 (0.04-0.36) x10^3/uL Immature Gran # (Auto) 0.10 H (0.001-0.031) x10^3u/L Absolute Lymphs (auto) 1.24 (1.18-3.74) x10^3/uL Absolute Monos (auto) 0.79 (0.24-0.86) x10^3/uL Absolute Nucleated RBC 0.00 (0.00-0.012) x10^3u/L Lymphocytes % 8.5 L (19.3-51.7) % Monocytes % 5.4 (4.7-12.5) % Eosinophils % 0.5 L (0.7-5.8) % Basophils % 0.3 (0.1-1.2) % Absolute Granulocytes 12.30 H (1.56-6.13) x10^3/uL Basophils # 0.05 (0.01-0.08) x10^3/uL Sodium 136 (135-145) mmol/L Potassium 3.7 (3.5-5.1) mmol/L Chloride 103 (98-107) mmol/L Carbon Dioxide 19 L (22-30) mmol/L Anion Gap 17.6 H (5-15) MEQ/L BUN 9 (7-17) mg/dL Creatinine 0.59 (0.52-1.04) mg/dL Estimated GFR 124.3 ML/MIN Glucose 70 L (74-106) mg/dL Calcium 9.5 (8.4-10.2) mg/dL Total Bilirubin 2.20 H (0.2-1.3) mg/dL AST 33 (14-36) U/L ALT 16 (0-35) U/L Alkaline Phosphatase 405 H (38-126) U/L Serum Total Protein 7.8 (6.3-8.2) g/dL Albumin 4.3 (3.5-5.0) g/dL Lipase 45 (23-300) U/L - Progress Progress: re-examined Progress Note: 01/21/25 21:24 29 years old 2 para 1 at 37 weeks gestation is evaluated in the ER for gastroenteritis symptoms. She is given fluids and symptomatic treatment Workup showed normal white count, no acute derangements of electrolytes, chemistries consistent with some element of dehydration. I have asked OB nurses and they have put patient on the monitor, having contractions every 2 to [address] Parkinson patient's primary OB, recommended transfer to labor and delivery and patient would be observed overnight with hydration. No peritoneal signs, I believe patient has viral gastroenteritis. Discussed the results of workup and plan of care with patient and family which they understand and agree. Complexity of problems addressed: Moderate acute Complexity of data reviewed/analyzed: Monitored Risk of complication: High risk Discussed with DrMaday: Refugio Counseled pt/family regarding: lab results, diagnosis Medical Desision Making - Independent Historian Additional History obtained from: Spouse - Discussion of managment Care discussed with:: specialist (Dr. Parkinson [employer]) Reviewed:: Test results Will see patient: in hospital - Diagnostic Testing Diagnostic test were ordered, analyzed, and reviewed by me: Yes - Risk of complications The pt has a mod risk of morbidity or mortality based on: Need for prescription drug management The pt has a high risk of morbidity or mortality based on: Decision regarding hospitilization or escalation of hosp level of care - Departure Departure Disposition: Observation Clinical Impression: Acute gastroenteritis, Uterine contractions during , Dehydration Condition: Stable Critical Care Time: No Referrals: TONI RAZO [Primary Care Provider] - Follow up/PCP as directed
[2025-01-21 21:33] LABS: INFLUENZA A NEGATIVE (NEGATIVE); INFLUENZA B NEGATIVE (NEGATIVE); RESPIRATORY SYNCTIAL VIRUS NEGATIVE (NEGATIVE); SARS-CoV-2 Xpert Express NEGATIVE (NEGATIVE)
[2025-01-21] MEDS ORDERED: Zofran 4 MG/2 ML VIAL IV PRN (22:38)
[2025-01-21] MEDS: PROCARDIA 10 MG PO SCH (22:41)
[2025-01-21] MEDS: Lactated Ringers 1,000 ML IV SCH (22:50)
[2025-01-21] MEDS: Compazine 10 MG/2 ML IV PRN (23:10)
[2025-01-22 01:38] VITALS: O2SAT 94
[2025-01-22 07:42] VITALS: BP 101/59; PULSE 93; TEMP 97.6
[2025-01-22 07:43] LABS: Appearance Clear (Clear); Bacteria None Seen /HPF (None Seen); Bilirubin Small (Negative); Blood Negative (Negative); Epithelial Cells None Seen /HPF (None Seen); Glucose, Urine Negative (Negative); Hyaline Casts NONE SEEN /LPF (0-2); Ketones >=160 (Negative); Leukocyte Esterase Trace (Negative); Nitrite Negative (Negative); Protein,Urine Dip 30 (Negative); RBC 0-2 /HPF (0-5); Specific Gravity 1.025 (1.005-1.030); WBC 0-2 /HPF (0-5)
[2025-01-22 13:01] LABS: Amphetamine,Urine NEGATIVE (NEGATIVE); Barbiturate,Urine NEGATIVE (NEGATIVE); Benzodiazepine,Urine NEGATIVE (NEGATIVE); Cocaine,Urine NEGATIVE (NEGATIVE); Methadone,Urine NEGATIVE (NEGATIVE); Opiate,Urine NEGATIVE (NEGATIVE); PCP,Urine NEGATIVE (NEGATIVE); THC,Urine POSITIVE (NEGATIVE)
== END 2025-01-22 10:05 | disposition home or self-care (01) ==
LOC: ED 19:48 → OB 22:33
PROVIDERS: ADMIT Obstetrics & Gynecology; ATTEND Obstetrics & Gynecology
DX: Z34.83 Encounter for supervision of other normal pregnancy, third trimester (principal); Z3A.36 36 weeks gestation of pregnancy
CPT/HCPCS: 0241U; 36415; 80053; 83690; 85025; 96374; 80307; 81001; 99283; G0378; G0379; J2405; A9270-GY

== ENCOUNTER 2025-02-04 01:50 | Observation (INO) | payer OTHER ==
[2025-02-04 02:11] VITALS: TEMP 97.8
[2025-02-04 02:16] LABS: Appearance Clear (Clear); Bacteria None Seen /HPF (None Seen); Bilirubin Negative (Negative); Blood Negative (Negative); Epithelial Cells None Seen /HPF (None Seen); Glucose, Urine Negative (Negative); Hyaline Casts NONE SEEN /LPF (0-2); Ketones Negative (Negative); Leukocyte Esterase Negative (Negative); Nitrite Negative (Negative); Protein,Urine Dip Negative (Negative); RBC 0-2 /HPF (0-5); Specific Gravity <=1.005 (1.005-1.030); Urobilinogen 0.2 mg/dL (0.2); WBC 0-2 /HPF (0-5)
[2025-02-04 02:21] LABS: Amphetamine,Urine NEGATIVE (NEGATIVE); Barbiturate,Urine NEGATIVE (NEGATIVE); Benzodiazepine,Urine NEGATIVE (NEGATIVE); Cocaine,Urine NEGATIVE (NEGATIVE); Methadone,Urine NEGATIVE (NEGATIVE); Opiate,Urine NEGATIVE (NEGATIVE); PCP,Urine NEGATIVE (NEGATIVE); THC,Urine NEGATIVE (NEGATIVE)
[2025-02-04] MEDS ORDERED: TYLENOL EXTRA STRENGTH 500 MG PO PRN (02:30)
[2025-02-04] MEDS ORDERED: Lactated Ringers 1,000 ML IV ONE (02:34)
[2025-02-04] MEDS: Lactated Ringers 1,000 ML IV SCH ×2 (02:37→03:47)
[2025-02-04 02:50] LABS: Absolute Neutrophil Ct (ANC) 9.33 x10^3/uL (1.56-6.13); BASOPHIL % 0.5 % (0.1-1.2); Basophil (Absolute #) 0.06 x10^3/uL (0.01-0.08); Eosinophil % 0.8 % (0.7-5.8); Hematocrit 39.5 % (34.1-44.9); Hemoglobin 13.3 g/dL (11.2-15.7); IMMATURE GRAN # 0.07 x10^3u/L (0.001-0.031); IMMATURE GRAN % 0.5 % (0.001-0.429); Lymphocyte (Absolute #) 2.72 x10^3/uL (1.18-3.74); Lymphocytes % 20.8 % (19.3-51.7); Mean Cell Volume 91.2 fL (79.4-94.8); Mean Corpuscular Hemoglobin 30.7 pg (25.6-32.2); Mean Corpuscular Hgb Concent. 33.7 g/dL (32.2-35.5); Mean Platelet Volume 10.3 fL (9.4-12.3); Monocyte (Absolute #) 0.78 x10^3/uL (0.24-0.86); Neutrophil % 71.4 % (34.0-71.1); Platelet Count 284 x10^3/uL (182-369); Red Blood Count 4.33 x10^6/uL (3.93-5.22); White Blood Count 13.1 x10^3/uL (3.98-10.04)
[2025-02-04 03:44] LABS: ABO TYPING A; Antibody Screen NEGATIVE (NEGATIVE); RH TYPING POSITIVE
[2025-02-04] MEDS: STADOL 2 MG IV PRN (04:43)
[2025-02-04 05:12] VITALS: PULSE 71; O2SAT 96
[2025-02-04 09:08] VITALS: BP 94/60; RESP 18
[2025-02-05 17:47] LABS: RPR Non Reactive (Non Reactive)
== END 2025-02-04 11:55 | disposition home or self-care (01) ==
LOC: OB 01:50
PROVIDERS: ADMIT Obstetrics & Gynecology; ATTEND Obstetrics & Gynecology
DX: Z34.83 Encounter for supervision of other normal pregnancy, third trimester (principal); Z3A.38 38 weeks gestation of pregnancy
CPT/HCPCS: 36415; 80307; 81001; 85025; 86592; 86850; 86900; 86901; G0378; G0379; J0595

== ENCOUNTER 2025-02-09 07:58 | Inpatient (IN) | payer OTHER ==
[2025-02-09] MEDS ORDERED: Zofran 4 MG/2 ML VIAL IV PRN (21:00)
[2025-02-09] MEDS ORDERED: BRETHINE 1 MG/ML SQ PRN (21:00)
[2025-02-09] MEDS ORDERED: Ephedrine Sulfate 50 MG/ML IV PRN (21:00)
[2025-02-09 22:46] LABS: Absolute Neutrophil Ct (ANC) 7.66 x10^3/uL (1.56-6.13); BASOPHIL % 0.4 % (0.1-1.2); Basophil (Absolute #) 0.05 x10^3/uL (0.01-0.08); Eosinophil % 0.8 % (0.7-5.8); Eosinophil (Absolute #) 0.09 x10^3/uL (0.04-0.36); Hematocrit 37.1 % (34.1-44.9); Hemoglobin 12.6 g/dL (11.2-15.7); IMMATURE GRAN # 0.08 x10^3u/L (0.001-0.031); IMMATURE GRAN % 0.7 % (0.001-0.429); Lymphocyte (Absolute #) 3.12 x10^3/uL (1.18-3.74); Lymphocytes % 26.4 % (19.3-51.7); Mean Cell Volume 90.9 fL (79.4-94.8); Mean Corpuscular Hemoglobin 30.9 pg (25.6-32.2); Mean Platelet Volume 10.6 fL (9.4-12.3); Monocyte (Absolute #) 0.81 x10^3/uL (0.24-0.86); Monocytes % 6.9 % (4.7-12.5); Neutrophil % 64.8 % (34.0-71.1); Platelet Count 265 x10^3/uL (182-369); Red Blood Count 4.08 x10^6/uL (3.93-5.22); Red Cell Distribution Width 13.8 % (11.7-14.4); White Blood Count 11.8 x10^3/uL (3.98-10.04)
[2025-02-09] MEDS: PITOCIN 30 UNITS/ LR 500 ML 30 UNITS/500 ML PLAST..BAG IV SCH (23:01)
[2025-02-09] MEDS: Lactated Ringers 1,000 ML IV SCH (23:02)
[2025-02-09 23:03] LABS: Amphetamine,Urine NEGATIVE (NEGATIVE); Barbiturate,Urine NEGATIVE (NEGATIVE); Benzodiazepine,Urine NEGATIVE (NEGATIVE); Cocaine,Urine NEGATIVE (NEGATIVE); Methadone,Urine NEGATIVE (NEGATIVE); Opiate,Urine NEGATIVE (NEGATIVE); PCP,Urine NEGATIVE (NEGATIVE); THC,Urine NEGATIVE (NEGATIVE)
[2025-02-09 23:25] LABS: ABO TYPING A; Antibody Screen NEGATIVE (NEGATIVE); RH TYPING POSITIVE
[2025-02-09] MEDS: STADOL 2 MG IV PRN (23:53)
[2025-02-10] MEDS: Lactated Ringers 1,000 ML IV ONE (06:00)
[2025-02-10] MEDS: FENTANYL 2 MCG-BUPIV 0.125%-NS 250 ML Epidur 250 ML EPIDURAL SCH (06:57)
[2025-02-10 10:18] LABS: Appearance Clear (Clear); Bacteria None Seen /HPF (None Seen); Bilirubin Negative (Negative); Blood Negative (Negative); Epithelial Cells None Seen /HPF (None Seen); Glucose, Urine Negative (Negative); Hyaline Casts NONE SEEN /LPF (0-2); Ketones Negative (Negative); Leukocyte Esterase Negative (Negative); Nitrite Negative (Negative); Protein,Urine Dip Negative (Negative); RBC 0-2 /HPF (0-5); Urobilinogen 0.2 mg/dL (0.2); WBC 0-2 /HPF (0-5)
[2025-02-10] MEDS: FERREX 150 PO SCH (11:42)
[2025-02-10] MEDS ORDERED: CORTISONE 1% CREAM TP PRN (12:00)
[2025-02-10] MEDS ORDERED: Dulcolax 10 MG SUPP PR PRN (12:00)
[2025-02-10] MEDS ORDERED: Mylicon 80MG PO PRN (12:00)
[2025-02-10] MEDS ORDERED: Anucort-HC SUPPOSITORY PR PRN (12:00)
[2025-02-10] MEDS: MOTRIN 400 MG PO PRN (14:14)
[2025-02-10] MEDS: Docusate Sodium 100 MG PO SCH (16:14)
[2025-02-10] MEDS: TYLENOL EXTRA STRENGTH 500 MG PO PRN (16:15)
[2025-02-10] MEDS: LANSINOH 40 GM TOP PRN (18:55)
[2025-02-10] MEDS: Dermoplast Spray TP PRN (18:56)
[2025-02-10] MEDS: TUCKS TP PRN (18:56)
[2025-02-11 04:48] LABS: BASOPHIL % 0.5 % (0.1-1.2); Basophil (Absolute #) 0.06 x10^3/uL (0.01-0.08); Eosinophil % 1.1 % (0.7-5.8); Eosinophil (Absolute #) 0.14 x10^3/uL (0.04-0.36); Hematocrit 35.2 % (34.1-44.9); Hemoglobin 11.7 g/dL (11.2-15.7); IMMATURE GRAN # 0.08 x10^3u/L (0.001-0.031); IMMATURE GRAN % 0.6 % (0.001-0.429); Lymphocyte (Absolute #) 3.17 x10^3/uL (1.18-3.74); Lymphocytes % 24.8 % (19.3-51.7); Mean Cell Volume 92.9 fL (79.4-94.8); Mean Corpuscular Hemoglobin 30.9 pg (25.6-32.2); Mean Corpuscular Hgb Concent. 33.2 g/dL (32.2-35.5); Mean Platelet Volume 10.9 fL (9.4-12.3); Monocyte (Absolute #) 0.93 x10^3/uL (0.24-0.86); Monocytes % 7.3 % (4.7-12.5); Neutrophil % 65.7 % (34.0-71.1); Platelet Count 225 x10^3/uL (182-369); Red Blood Count 3.79 x10^6/uL (3.93-5.22); Red Cell Distribution Width 13.9 % (11.7-14.4); White Blood Count 12.8 x10^3/uL (3.98-10.04)
--- NOTE | 2025-02-11 08:04 | PCM.NOTE ---
Date and Time: 02/11/25801 Subjective Assessment: ppd sp 1 pt resting in bed and doing well able to ambulate and tolerate diet vss afebrile abd;soft uterus; firm lochia; mild hgb; 11.7 a/p sp csection pod 1 pt desires to be discharged today should fu 3 wks Objective Data Vital Signs: Vital Signs - 24 hr Temp Pulse Resp BP BP Pulse Ox 02/11/25 02:00 97.5 F 75 18 103/59 96 02/10/25 20:00 98.0 F 75 20 111/62 95 02/10/25 16:00 97.9 F 85 14 109/67 97 02/10/25 15:00 72 16 107/70 96 02/10/25 14:30 63 14 119/75 95 02/10/25 14:00 66 14 116/74 95 02/10/25 13:45 66 14 106/70 96 02/10/25 13:30 97.9 F 74 14 109/69 96 02/10/25 13:15 79 16 107/75 96 02/10/25 12:00 72 18 98/61 97 02/10/25 11:30 74 18 94/56 96 02/10/25 11:15 89 16 97/57 97 02/10/25 11:00 83 18 97/63 97 02/10/25 10:45 79 18 97 02/10/25 10:30 75 18 108/62 96 02/10/25 10:15 74 16 108/62 96 02/10/25 10:00 74 18 101/59 97 02/10/25 09:45 75 18 99/53 97 02/10/25 09:30 75 18 109/65 98 02/10/25 09:15 75 18 109/65 98 02/10/25 09:00 67 14 110/59 97 02/10/25 08:45 78 16 92/55 97 02/10/25 08:30 75 18 111/56 97 02/10/25 08:15 82 18 105/69 91 L Pain Assessment - Last Documented Pain Intensity [Left Upper] 5 Pain Intensity [Lower] 7 Pain Intensity 2 Pain Scale Used 0-10 Pain Scale Intake and Output: Intake & Output 02/08/25 02/09/25 02/10/25 02/11/25 11:59 11:59 11:59 11:59 Intake Total 3329 Output Total 100 500 Balance 3229 -500 Weight 78.925 kg Lab Results: Lab Results-Last 24 Hours 02/10/25 02/11/25 Range/Units 10:09 04:49 WBC 12.8 H (3.98-10.04) x10^3/uL RBC 3.79 L (3.93-5.22) x10^6/uL Hgb 11.7 (11.2-15.7) g/dL Hct 35.2 (34.1-44.9) % MCV 92.9 (79.4-94.8) fL MCH 30.9 (25.6-32.2) pg MCHC 33.2 (32.2-35.5) g/dL RDW 13.9 (11.7-14.4) % Plt Count 225 (182-369) x10^3/uL MPV 10.9 (9.4-12.3) fL Gran % 65.7 (34.0-71.1) % Immature Gran % (Auto) 0.6 H (0.001-0.429) % Nucleat RBC Rel Count 0.0 (0.00-0.2) % Eos # (Auto) 0.14 (0.04-0.36) x10^3/uL Immature Gran # (Auto) 0.08 H (0.001-0.031) x10^3u/L Absolute Lymphs (auto) 3.17 (1.18-3.74) x10^3/uL Absolute Monos (auto) 0.93 H (0.24-0.86) x10^3/uL Absolute Nucleated RBC 0.00 (0.00-0.012) x10^3u/L Lymphocytes % 24.8 (19.3-51.7) % Monocytes % 7.3 (4.7-12.5) % Eosinophils % 1.1 (0.7-5.8) % Basophils % 0.5 (0.1-1.2) % Absolute Granulocytes 8.40 H (1.56-6.13) x10^3/uL Basophils # 0.06 (0.01-0.08) x10^3/uL Urine Color Yellow (Yellow) Urine Appearance Clear (Clear) Urine pH 8.0 (4.6-8.0) Ur Specific [place] 1.010 (1.005-1.030) Urine Protein Negative (Negative) Urine Glucose (UA) Negative (Negative) mg/dL Urine Ketones Negative (Negative) Urine Blood Negative (Negative) Urine Nitrite Negative (Negative) Urine Bilirubin Negative (Negative) Urine Urobilinogen 0.2 (0.2) mg/dL Ur Leukocyte Esterase Negative (Negative) U Hyaline Cast (Auto) NONE SEEN (0-2) /LPF Urine Microscopic RBC 0-2 (0-5) /HPF Urine Microscopic WBC 0-2 (0-5) /HPF Ur Epithelial Cells None Seen (None Seen) /HPF Urine Bacteria None Seen (None Seen) /HPF Urine Culture Reflexed NO (NO) Assessment/Plan (1) Vaginal delivery Current Visit: No Status: Acute Code(s): O80 - ENCOUNTER FOR FULL-TERM UNCOMPLICATED DELIVERY
--- NOTE | 2025-02-11 08:08 | PCM.DS ---
Discharge Summary Date of Admission: 02/10/25 07:58 Admitting Physician: YULIET CHAVEZ DO Consults: Consults on Case 02/09/25 21:00 Notify Anesthesia Provider PRN 02/10/25 12:00 Notify Physician ROUTINE Primary Care Provider: TONI RAZO Allergies Allergies No Known Drug Allergies Allergy (Verified 01/21/25 19:58) Hospital Summary - Hospital Course Hospital Course: pt admitted on february 09 at 39 wks gestation for induction and was started on low dose pitocin and subsequently delivered on without complication live baby boy via with nuchal cord x 1 reduced at delivery after clamping and cutting cord. pt was noted having a tiny periurethral laceration however no bleeding was noted from its site not requiring suturing. pt during period did well able to ambulate and tolerate diet and desires to be discharged on february 11. pts vss and hgb stable at 11.7 prior to discharge. pt advised to fu in office in 3 wks. all questions answered to her satisfaction prior to discharge. - Vitals & Intake/Output Vital Signs: Vital Signs Temperature 97.5 F 02/11/25 02:00 Pulse Rate 75 02/11/25 02:00 Respiratory Rate 18 02/11/25 02:00 Blood Pressure 103/59 02/11/25 02:00 O2 Sat by Pulse Oximetry 96 02/11/25 02:00 Intake & Output: Intake & Output 02/08/25 02/09/25 02/10/25 02/11/25 11:59 11:59 11:59 11:59 Intake Total 3329 Output Total 100 500 Balance 3229 -500 Weight 78.925 kg - Lab Result Diagrams: 02/11/25 04:49 Lab Results-Last 24 Hrs: Lab Results-Last 24 Hours 02/10/25 02/11/25 Range/Units 10:09 04:49 WBC 12.8 H (3.98-10.04) x10^3/uL RBC 3.79 L (3.93-5.22) x10^6/uL Hgb 11.7 (11.2-15.7) g/dL Hct 35.2 (34.1-44.9) % MCV 92.9 (79.4-94.8) fL MCH 30.9 (25.6-32.2) pg MCHC 33.2 (32.2-35.5) g/dL RDW 13.9 (11.7-14.4) % Plt Count 225 (182-369) x10^3/uL MPV 10.9 (9.4-12.3) fL Gran % 65.7 (34.0-71.1) % Immature Gran % (Auto) 0.6 H (0.001-0.429) % Nucleat RBC Rel Count 0.0 (0.00-0.2) % Eos # (Auto) 0.14 (0.04-0.36) x10^3/uL Immature Gran # (Auto) 0.08 H (0.001-0.031) x10^3u/L Absolute Lymphs (auto) 3.17 (1.18-3.74) x10^3/uL Absolute Monos (auto) 0.93 H (0.24-0.86) x10^3/uL Absolute Nucleated RBC 0.00 (0.00-0.012) x10^3u/L Lymphocytes % 24.8 (19.3-51.7) % Monocytes % 7.3 (4.7-12.5) % Eosinophils % 1.1 (0.7-5.8) % Basophils % 0.5 (0.1-1.2) % Absolute Granulocytes 8.40 H (1.56-6.13) x10^3/uL Basophils # 0.06 (0.01-0.08) x10^3/uL Urine Color Yellow (Yellow) Urine Appearance Clear (Clear) Urine pH 8.0 (4.6-8.0) Ur Specific [place] 1.010 (1.005-1.030) Urine Protein Negative (Negative) Urine Glucose (UA) Negative (Negative) mg/dL Urine Ketones Negative (Negative) Urine Blood Negative (Negative) Urine Nitrite Negative (Negative) Urine Bilirubin Negative (Negative) Urine Urobilinogen 0.2 (0.2) mg/dL Ur Leukocyte Esterase Negative (Negative) U Hyaline Cast (Auto) NONE SEEN (0-2) /LPF Urine Microscopic RBC 0-2 (0-5) /HPF Urine Microscopic WBC 0-2 (0-5) /HPF Ur Epithelial Cells None Seen (None Seen) /HPF Urine Bacteria None Seen (None Seen) /HPF Urine Culture Reflexed NO (NO) Final Diagnosis/Problem List - Final Discharge Diagnosis/Problem (1) Vaginal delivery Current Visit: No Status: Acute Code(s): O80 - ENCOUNTER FOR FULL-TERM UNCOMPLICATED DELIVERY - Discharge Disposition: Home, Self-Care Condition: Stable Prescriptions: No Action Pnv 119/Iron Fum/Folic Acid [ 19 Tablet] 1 tab PO DAILY Ferrous Sulfate 325 mg [Feosol 325 mg] 325 mg PO DAILY Follow up with: TONI RAZO [Primary Care Provider] - YULIET CHAVEZ DO [ACTIVE STAFF] - 3 weeks
[2025-02-11 08:26] LABS: HBsAg Screen Negative (Negative); RPR Non Reactive (Non Reactive)
[2025-02-11 11:01] VITALS: TEMP 97.9
[2025-02-11] MEDS: Adacel Vial IM ONE (13:50)
[2025-02-11] MEDS: M-M-R II Vaccine With Diluent SQ ONE (17:32)
[2025-02-11 18:51] VITALS: BP 116/76; PULSE 71; RESP 12; O2SAT 97
== END 2025-02-11 18:15 | disposition home or self-care (01) | DRG 806 ==
LOC: OB 07:58 → OBSVTOIN 02-10 07:58
PROVIDERS: ADMIT Obstetrics & Gynecology; ATTEND Obstetrics & Gynecology
PROC: 10E0XZZ Delivery of Products of Conception, External Approach (ICD-10-PCS; principal; 2025-02-10)
DX: O69.81X0 Labor and delivery complicated by cord around neck, without compression, not applicable or unspecified (principal); Z59.811 Housing instability, housed, with risk of homelessness; Z37.0 Single live birth; O71.82 Other specified trauma to perineum and vulva; Z3A.39 39 weeks gestation of pregnancy
CPT/HCPCS: 36415; 80307; 81001; 85025; 86592; 86850; 86900; 86901; 87086; 87340; 90707; 90715; G0378; G0379; J0595; J2590; A9270-GY

== ENCOUNTER 2025-08-17 07:22 | Day surgery (SDC) | payer OTHER ==
[2025-08-17] MEDS ORDERED: CEFAZOLIN SODIUM ONE (07:43)
[2025-08-17] MEDS: Lactated Ringers 1,000 ML IV SCH (07:50)
[2025-08-17 07:58] VITALS: RESP 18
[2025-08-17 08:27] LABS: HCG SERUM TEST NEGATIVE (NEGATIVE)
[2025-08-17] MEDS ORDERED: Sensorcaine 0.25% 10 ML ONE (09:37)
[2025-08-17] MEDS ORDERED: BRIDION 200MG/2ML IV ONE (09:40)
[2025-08-17] MEDS ORDERED: propofoL IV ONE (09:40)
[2025-08-17] MEDS ORDERED: TORAdol 30 mg Injection ONE ×2 (09:40→10:10)
[2025-08-17] MEDS ORDERED: Xylocaine-Mpf 2% 5 Ml Vial ONE (09:40)
[2025-08-17] MEDS ORDERED: SUBLIMAZE 100 MCG/2 ML ONE ×2 (09:40→10:55)
[2025-08-17] MEDS ORDERED: ROCURONIUM BROMIDE IV ONE (09:40)
[2025-08-17] MEDS ORDERED: Zofran 4 MG/2 ML VIAL ONE (09:40)
[2025-08-17] MEDS ORDERED: Versed 2 MG/2 ML Injection ONE (09:41)
[2025-08-17] MEDS ORDERED: DILAUDID 0.5 MG/0.5 ML SYRINGE ONE ×2 (10:49→11:05)
[2025-08-17] MEDS ORDERED: PERCOCET TABLET 5/325MG ONE ×2 (12:15)
[2025-08-17] MEDS: PERCOCET TABLET 5/325MG PO ONE (12:17)
[2025-08-17 12:31] VITALS: BP 109/74; PULSE 69; TEMP 97.4; O2SAT 97
--- NOTE | 2025-08-19 10:26 | OP ---
SURGERY DATE/TIME: 08/17/2025 [id number] PREOPERATIVE DIAGNOSIS: Contraceptive management. POSTOPERATIVE DIAGNOSIS: Contraceptive management. PROCEDURE: Laparoscopic tubal sterilization via bilateral salpingectomy. SURGEON: Sven Parkinson DO SHOE POLISHER: Claudia Rubin. ANESTHESIA: General. ESTIMATED BLOOD LOSS: Minimal. COMPLICATIONS: None. FINDINGS: The risks, benefits, indications, and alternatives of the procedure were reviewed with the patient prior to the procedure. The patient understood the risk of infection, bleeding, bowel injury, bladder injury, ureteral injury, pelvic infection, thromboembolic disorder, possible future ectopic that can be associated with this procedure and understands the risks of possible future pregnancies that can be associated with this procedure despite having a tubal sterilization. The patient also understands the risks of possible in the future as well. DESCRIPTION OF PROCEDURE AND FINDINGS: From this point, the patient was taken to the operating room, given general sedation, placed in a supine position where she was prepped and draped in the usual sterile fashion. A 5 mm skin incision was made in the umbilical fold where a 5 mm trocar and sleeve were advanced under direct visualization where pneumoperitoneum was obtained with 4 L of CO2 gas. A survey of the patient's pelvis and abdomen revealed an entirely normal anatomy. An additional incision was made in the left middle quadrant region where a 5 mm trocar and sleeve were advanced under direct visualization, and an additional incision was made with an 8 mm incision approximately 2 cm above the symphysis pubis where an 8 mm incision was made and an 8 mm trocar and sleeve were advanced under direct visualization. From this point, the right fallopian tube was then elevated with a grasper and the LigaSure was placed over the right mesosalpinx where it was clamped, coagulated and cut, and taken toward the cornual region where it was excised in its entirety. The same procedure was performed on the left side where the fallopian tube was elevated, LigaSure was placed on the left mesosalpinx where it was clamped, coagulated and cut, and taken toward the cornual region where it was excised in its entirety as well. From this point, hemostasis was obtained. All instruments were then removed from the patient's abdominal region, and the incisions were closed with 4-0 Monocryl suture with subsequent Dermabond. The patient was then taken out of anesthesia and was then taken to the recovery room in stable condition. All instruments and laps were accounted for x2.
== END 2025-08-17 12:39 | disposition home or self-care (01) ==
LOC: SDC 07:22
PROVIDERS: ATTEND Obstetrics & Gynecology
DX: Z30.2 Encounter for sterilization (principal)